=== PATIENT | male | born 1965 | race Caucasian/White ===

== ENCOUNTER 2016-10-01 18:13 | Emergency (ER) | payer OTHER ==
[~2016-10-01] VITALS: Ht 177.8 cm; Wt 164.9 kg
[~2016-10-01 18:13] MED LIST: LISI2.5T3 PO
[2016-10-01 18:36] VITALS: BP 109/67; PULSE 88; RESP 16; TEMP 98.4; O2SAT 96
--- NOTE | 2016-10-01 19:08 | PD ---
HPI Chief Complaint: Skin Problem Time Seen by Provider: 19:08 Travel History International Travel<30 days: No Contact w/Intl Traveler<30days: No Traveled to known affect area: No History of Present Illness HPI 51-year-old male with history of type 2 diabetes presents the emergency Department with sudden onset burning pain in the right medial heel. 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 Patient does not have fever, chills, or other symptoms. He states he did tear a hole in his right shoe several days ago which may have caused this particular exposure. Patient has not reported this as a Worker's Comp. injury at this time. He describes the pain as a burning sensitivity to the right medial heel and foot. It is only on the sole of the foot. He tried using some topical burn cream without improvement. He has no known drug allergies. PFSH Past Medical History Hx Anticoagulant Therapy: Yes (asa 81mg) Alzheimer's Disease: No Autoimmune Disease: No Blood Disorders: Yes Heart Rhythm Problems: No Cancer: No Cardiac Catheterization: No Cardiovascular Problems: Yes (htn on meds) High Cholesterol: No Chemotherapy: No Chest Pain: Yes (RESPIRATOY NOT CARDIAC) Congestive Heart Failure: No Diabetes: Yes (type 2) Patient Takes Glucophage: No Diminished Hearing: Yes Endocrine: No Gastrointestinal Disorders: Yes GERD: Yes Glaucoma: No Genitourinary: No Heparin Induced Thrombocytopen: No Hypertension: Yes Immune Disorder: No Implanted Vascular Access Dvce: No Musculoskeletal: Yes (RUPTURED LUMBAR DISC YEARS AGO) Neurologic: No Psychiatric: No Reproductive: No Respiratory: Yes Immunizations Current: No Radiation Therapy: No Thyroid Disease: No Tetanus Vaccination: < 5 Years Influenza Vaccination: Yes Past Surgical History Abdominal Surgery: Yes (hernia) Arteriovenous Shunt: No Coronary Artery Bypass Graft: No Eye Surgery: Yes (LEFT EYE CORRECTION CHILDHOOD) Genitourinary Surgery: Yes (prostate) Insulin Pump: No Joint Replacement: No Pacemaker: No Tonsillectomy: Yes Other Surgery: No Family History Family Myocardial Infarction: Yes Social History Alcohol Use: Yes (Occ.) Tobacco Use: No Substance Use: No Allergies-Medications (Allergen,Severity, Reaction): Coded Allergies: No Known Allergies (Verified , 10/01/16) Reported Meds & Prescriptions Reported Meds & Active Scripts Active Reported Victoza Inj (Liraglutide Inj) 18 Mg/3 Ml Pen 0.6 Mg SQ DAILY Cholesterol 1 Mis Mis 1 Tab PO HS Lisinopril 20 Mg Tab 20 Mg PO DAILY Review of Systems Except as stated in HPI: all other systems reviewed are Neg General / Constitutional: No: Fever Eyes: No: Visual changes HENT: No: Headaches Cardiovascular: No: Chest Pain or Discomfort Respiratory: No: Shortness of Breath Gastrointestinal: No: Abdominal Pain Genitourinary: No: Dysuria Musculoskeletal: No: Pain Skin: Positive Other, No Rash Neurologic: No: Weakness Psychiatric: No: Depression Endocrine: No: Polydipsia Hematologic/Lymphatic: No: Easy Bruising Physical Exam Narrative GENERAL: Patient appears in mild to moderate distress. SKIN: Warm and dry. Normal color. Normal turgor. The right foot has a 4 cm round area with the patient has complaints of sensitivity which appears to be a early forming blister or bulla along the medial heel. There is no obvious sign of drainage or cellulitis. Rash. HEAD: Atraumatic. Normocephalic. EYES: Pupils equal and round. No scleral icterus. No injection or drainage. ENT: No nasal bleeding or discharge. Mucous membranes pink and moist. Pharynx is clear NECK: Trachea midline. Supple nontende CARDIOVASCULAR: Regular rate and rhythm. RESPIRATORY: No accessory muscle use. Clear to auscultation. Breath sounds equal bilaterally. GASTROINTESTINAL: Abdomen soft, non-tender, nondistended. Hepatic and splenic margins not palpable. MUSCULOSKELETAL: Extremities without clubbing, cyanosis, or edema. No obvious deformities. NEUROLOGICAL: Awake and alert. No obvious cranial nerve deficits. Motor grossly within normal limits. Five out of 5 muscle strength in the arms and legs. Normal speech. PSYCHIATRIC: Appropriate mood and affect; insight and judgment normal. Data Data Last Documented VS Vital Signs Date Time Temp Pulse Resp B/P Pulse Ox O2 Delivery O2 Flow Rate FiO2 10/01/16 18:36 98.4 88 16 109/67 96 MDM Medical Decision Making Medical Screen Exam Complete: Yes Emergency Medical Condition: Yes Differential Diagnosis Chemical exposure burn. Right foot pain. Possible diabetic neuropathy. Early diabetic foot pain. Narrative Course Patient is medically stable at time of exam. Patient was discussed with and seen with Dr. Ngo. It is our opinion that the patient has a chemical burn to the right heel and foot. Patient is placed in a padded Neftaly bandage for. Patient has crutches at home which she will use for ambulation. He will be treated with ibuprofen 600 mg 4 times a day. #40. Patient is also given tramadol 50 mg one every 6 hours when necessary pain #20. Patient is to keep the area protected it elevated and stay off of it for the next several days. Work note is given keeping him out of work until cleared by his physician. Patient is to follow-up with his primary care physician as currently scheduled or return to emergency Department with worsening symptoms if needed. Diagnosis Primary Impression: Chemical burn Additional Impression: Acute pain of right foot Referrals: Primary Care Physician Patient Instructions: General Instructions Departure Forms: Work Release Special Instructions: Patient unable to bear weight or work until cleared by his physician. Additional Instructions: Patient was discussed with and seen with Dr. Ngo. It is our opinion that the patient has a chemical burn to the right heel and foot. Patient is placed in a padded Neftaly bandage for. Patient has crutches at home which she will use for ambulation. He will be treated with ibuprofen 600 mg 4 times a day. #40. Patient is also given tramadol 50 mg one every 6 hours when necessary pain #20. Patient is to keep the area protected it elevated and stay off of it for the next several days. Work note is given keeping him out of work until cleared by his physician. Patient is to follow-up with his primary care physician as currently scheduled or return to emergency Department with worsening symptoms if needed. Med/Other Pt SpecificInfo: Prescription(s) given Scripts Tramadol 50 Mg Tab50 Mg PO Q6H PRN (PAIN) #20 TAB Prov:Scooter Ngo MD 10/01/16 Ibuprofen 600 Mg Nhs108 Mg PO Q6H PRN (Pain/Inflammation) #40 TAB Prov:Scooter Ngo MD 10/01/16 Disposition: 01 DISCHARGE HOME Condition: Stable Jonah Schwarz October 01, 2016 19:08
[2016-10-01] MEDS ORDERED: SPIRCAP INH (19:09)
[2016-10-01] MEDS ORDERED: AMLO5TAB2 PO (19:09)
[2016-10-01] MEDS ORDERED: SYMB80AE INH (19:09)
[2016-10-01] MEDS ORDERED: VICT18IN SQ (19:22)
[2016-10-01] MEDS ORDERED: CHOLMIS PO (19:22)
[2016-10-01] MEDS ORDERED: LISI-515 PO (19:22)
[2016-10-01] MEDS ORDERED: IBUP-232 PO (19:43)
[2016-10-01] MEDS ORDERED: TRAM50TA PO (19:43)
== END 2016-10-01 19:57 | disposition home or self-care (01) ==
LOC: PHEFT 18:13
DX: T65.91XA Toxic effect of unspecified substance, accidental (unintentional), initial encounter (principal); T25.421A Corrosion of unspecified degree of right foot, initial encounter; M79.671 Pain in right foot; I10 Essential (primary) hypertension; E11.9 Type 2 diabetes mellitus without complications; Y93.89 Activity, other specified; Y92.69 Other specified industrial and construction area as the place of occurrence of the external cause; Y99.0 Civilian activity done for income or pay; Z79.899 Other long term (current) drug therapy
CPT/HCPCS: 99283

== ENCOUNTER 2016-10-13 21:04 | Inpatient (IN) | payer OTHER ==
[~2016-10-13] VITALS: Ht 177.8 cm; Wt 167.4 kg
[~2016-10-13 21:04] MED LIST changes: +CHOLMIS PO; +IBUP-232 PO; +LISI-515 PO; -LISI2.5T3 PO; +TRAM50TA PO; +VICT18IN SQ
[2016-10-13 21:16] VITALS: BP 156/88; PULSE 80; RESP 18; TEMP 99; O2SAT 96
--- NOTE | 2016-10-13 21:45 | PD ---
HPI Chief Complaint: Musculoskeletal Complaint Time Seen by Provider: 21:44 Travel History International Travel<30 days: No Contact w/Intl Traveler<30days: No Traveled to known affect area: No History of Present Illness HPI 51 year old right hand dominant male with PMH of T2DM, HTN presents to the ED for evaluation of ~20 hour history of pain and swelling of the left hand. Patient states that he woke up with morning to his symptoms. 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 He denies fever, chills, numbness, tingling, weakness of the extremity. He was able to go about his normal activities today. Patient states that he routinely blows dust off of himself during the day using high powered air. States that the pain is worsening, now radiated up the arm. PFSH Past Medical History Hx Anticoagulant Therapy: Yes (asa 81mg) Alzheimer's Disease: No Autoimmune Disease: No Blood Disorders: Yes Heart Rhythm Problems: No Cancer: No Cardiac Catheterization: No Cardiovascular Problems: Yes (htn on meds) High Cholesterol: Yes Chemotherapy: No Chest Pain: Yes (RESPIRATOY NOT CARDIAC) Congestive Heart Failure: No Diabetes: Yes (DM type 2) Patient Takes Glucophage: No Diminished Hearing: No Endocrine: No Gastrointestinal Disorders: Yes GERD: Yes Glaucoma: No Genitourinary: No Hypertension: Yes Immune Disorder: No Implanted Vascular Access Dvce: No Musculoskeletal: Yes (RUPTURED LUMBAR DISC YEARS AGO) Neurologic: Yes (NEUROPATHY) Psychiatric: No Reproductive: No Respiratory: Yes Immunizations Current: Yes Radiation Therapy: No Thyroid Disease: No Tetanus Vaccination: < 5 Years ?: Not Past Surgical History Arteriovenous Shunt: No Coronary Artery Bypass Graft: No Eye Surgery: Yes (LEFT EYE CORRECTION CHILDHOOD) Insulin Pump: No Joint Replacement: No Pacemaker: No Other Surgery: No Family History Family Myocardial Infarction: Yes Social History Alcohol Use: Yes (Occ.) Tobacco Use: No Substance Use: No Allergies-Medications (Allergen,Severity, Reaction): Coded Allergies: No Known Allergies (Verified , 10/13/16) Reported Meds & Prescriptions Reported Meds & Active Scripts Active Tramadol (Tramadol HCl) 50 Mg Tab 50 Mg PO Q6H PRN Ibuprofen 600 Mg Tab 600 Mg PO Q6H PRN Reported Victoza Inj (Liraglutide Inj) 18 Mg/3 Ml Pen 0.6 Mg SQ DAILY Lisinopril 20 Mg Tab 20 Mg PO DAILY Review of Systems Except as stated in HPI: all other systems reviewed are Neg Physical Exam Narrative GENERAL: Well-nourished, well-developed obese male in NAD. SKIN: Focused skin assessment warm/dry. There is a subcentimeter superficial abrasion of the dorsal aspect of the left hand. No warmth. No erythema. No drainage. No cellulitic streaking. HEAD: Normocephalic. EYES: No scleral icterus. No injection or drainage. NECK: Supple, trachea midline. No JVD or lymphadenopathy. CARDIOVASCULAR: Regular rate and rhythm without murmurs, gallops, or rubs. RESPIRATORY: Breath sounds equal bilaterally. No accessory muscle use. GASTROINTESTINAL: Abdomen soft, non-tender, nondistended. MUSCULOSKELETAL: No cyanosis, or edema. FOCUDSED LEFT UPPER EXTREMITY EXAM: 2+ radial pulse. Mild TTP of the dorsal aspect of the hand. No crepitus. Patient retains full, active, painless range of motion of the digits and wrist. Strong finger to thumb opposition. Compartments are soft. Neurovascularly intact. BACK: Nontender without obvious deformity. No CVA tenderness. Data Data Last Documented VS Vital Signs Date Time Temp Pulse Resp B/P Pulse Ox O2 Delivery O2 Flow Rate FiO2 10/14/16 00:35 96 10/14/16 00:07 77 16 144/88 Room Air 10/13/16 21:16 99.0 Orders Hand, Complete ([id number]) (10/13/16 21:50) Basic Metabolic Panel (Bmp) (10/13/16 22:59) Complete Blood Count With Diff (10/13/16 22:59) Blood Culture (10/13/16 22:59) Iv Access Insert/Monitor (10/13/16 22:59) Tetanus/Diphtheria Tox Adult (Tetanus/Di (10/13/16 23:00) Lactic Acid (10/13/16 23:12) Piperacil-Tazo 4.5 Gm Premix (Zosyn 4.5 (10/13/16 23:15) Clindamycin Inj (Cleocin Inj) (10/13/16 23:15) Vancomycin Inj (Vancomycin Inj) (10/13/16 23:15) Admit Order (Ed Use Only) (10/14/16 ) ^ Saline Lock (10/14/16 00:30) Resp Oxygen Macario C Titrat 1-4 L (10/14/16 ) Notify Dr: Other (10/14/16 00:30) Sodium Chloride 0.9% Flush (Ns Flush) (10/14/16 09:00) Sodium Chloride 0.9% Flush (Ns Flush) (10/14/16 00:30) Consult Hand Surgery (10/14/16 ) ^ For Further Orders (10/14/16 00:30) Labs Laboratory Tests Test 10/13/16 23:30 White Blood Count 12.4 TH/MM3 Red Blood Count 4.67 MIL/MM3 Hemoglobin 13.4 GM/DL Hematocrit 40.0 % Mean Corpuscular Volume 85.8 FL Mean Corpuscular Hemoglobin 28.6 PG Mean Corpuscular Hemoglobin 33.4 % Concent Red Cell Distribution Width 13.1 % Platelet Count 269 TH/MM3 Mean Platelet Volume 8.2 FL Neutrophils (%) (Auto) 66.2 % Lymphocytes (%) (Auto) 22.0 % Monocytes (%) (Auto) 6.4 % Eosinophils (%) (Auto) 4.8 % Basophils (%) (Auto) 0.6 % Neutrophils # (Auto) 8.2 TH/MM3 Lymphocytes # (Auto) 2.7 TH/MM3 Monocytes # (Auto) 0.8 TH/MM3 Eosinophils # (Auto) 0.6 TH/MM3 Basophils # (Auto) 0.1 TH/MM3 CBC Comment DIFF FINAL Differential Comment Sodium Level 139 MEQ/L Potassium Level 4.0 MEQ/L Chloride Level 103 MEQ/L Carbon Dioxide Level 30.1 MEQ/L Anion Gap 6 MEQ/L Blood Urea Nitrogen 13 MG/DL Creatinine 0.86 MG/DL Estimat Glomerular Filtration 94 ML/MIN Rate Random Glucose 94 MG/DL Lactic Acid Level 1.0 mmol/L Calcium Level 8.7 MG/DL MDM Medical Decision Making Medical Screen Exam Complete: Yes Emergency Medical Condition: Yes Differential Diagnosis Edema versus chemical burn versus abrasion versus early cellulitis versus other Narrative Course 51 year old right hand dominant male with PMH of T2DM, HTN presents to the ED for evaluation of ~20 hour history of pain and swelling of the left hand. Patient states that he woke up with morning to his symptoms. 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 He denies fever, chills, numbness, tingling, weakness of the extremity. He was able to go about his normal activities today. Vitals reviewed. Physical exam reveals an obese male in NAD. There is a subcentimeter superficial abrasion of the dorsal aspect of the left hand. No warmth. No erythema. No drainage. No cellulitic streaking. 2+ radial pulse. Patient retains full, active, painless range of motion of the digits and wrist. Strong finger to thumb opposition. Compartments are soft. Neurovascularly intact. Xray reveals no acute injury but does note subcutaneous air, possibly gas. I discussed the patient with Dr. Owen who recommends hand consultation. Call placed to Dr. Glaser. Dr. Owen to assume care of this patient. Please see her note for disposition. Diagnosis Primary Impression: Swelling of left hand Referrals: Primary Care Physician Elen Robbins October 13, 2016 21:45
[2016-10-13] MEDS ORDERED: CLIN1CAP5 PO (22:19)
--- NOTE | 2016-10-13 22:35 | RADHPO ---
EXAM DATE/TIME: 10/13/2016 22:20 [facility] COMPARISON: No previous studies available for comparison. INDICATIONS : Patient isn't sure what injury is from. Pain on posterior aspect of hand. MEDICAL HISTORY : Diabetes mellitus type II. Hypertension SURGICAL HISTORY : None. ENCOUNTER: Initial ACUITY: 2 days PAIN SCORE: 8/10 LOCATION: Left Posterior surface of hand. FINDINGS: There is dorsal soft tissue swelling. Some scattered mottled lucency seen and small bubbles of gas ar e possible. Extensor tendon sheaths could be involved. Mildly comminuted nonacute appearing distal tuft fracture seen of the little finger. I don't see an a cute fracture. No cortical destruction demonstrated. CONCLUSION: Soft tissue swelling dorsally of the hand and probably with some associated gas. No acute bony abnorm ality demonstrated. Nonacute distal tuft fracture of the little finger. Jaspreet Deras MD on October 13, 2016 at 22:31 Board Certified Radiologist. This report was verified electronically.
[2016-10-13] MEDS ORDERED: TETANUS/DIPHTHERIA TOXOID ADULT 0.5 ML VIAL IM ONE (23:00)
[2016-10-13] MEDS ORDERED: VANCOMYCIN INJ 1,500 MG in SODIUM CHLORID 0.9% 500 ML INJ 500 ML IV ONE (23:15)
[2016-10-13] MEDS ORDERED: CLINDAMYCIN INJ 900 MG in SODIUM CHLORIDE 0.9% INJ 100 ML IV ONE (23:15)
[2016-10-13] MEDS ORDERED: PIPERACIL-TAZO 4.5 GM PREMIX 100 ML IV ONE (23:15)
--- NOTE | 2016-10-13 23:40 | PD ---
Physical Exam Date Seen by Provider: October 13, 2016 Time Seen by Provider: 23:18 Narrative GENERAL: Well-developed obese male in no acute distress no respiratory distress SKIN: Warm and dry. HEAD: Normocephalic. EYES: No scleral icterus. No injection or drainage. NECK: Supple, trachea midline. No JVD or lymphadenopathy. CARDIOVASCULAR: Regular rate and rhythm without murmurs, gallops, or rubs. RESPIRATORY: Breath sounds equal bilaterally. No accessory muscle use. GASTROINTESTINAL: Abdomen soft, non-tender, nondistended. MUSCULOSKELETAL: No cyanosis, or edema. Attention left upper extremity mild soft tissue swelling to the dorsum of the left hand with superficial abrasion without black eschar, erythema, point tenderness, fluctuance, or drainage and superficial abrasion laceration at the radial aspect of the left index finger DIP no redness no drainage no fluctuance no eschar; no ascending erythema from the index finger third MCP no increased warmth. Mild palpable crepitus overlying the dorsum of the left hand midline at the level of the third MCP does not extend proximally to the wrist or forearm although patient complains of tenderness to palpation of the dorsum of the left hand and mild tenderness to palpation of the dorsum of the distal forearm; no palpable risk for distal forearm crepitus or fluctuance, no ascending erythema no axillary lymphadenopathy. Patient is able to demonstrate intact flexion extension of the digits of the left hand. Capillary refill is brisk and less than 2 seconds per digit. Radial and ulnar pulses 2+ to palpation. Data Data Last Documented VS Vital Signs Date Time Temp Pulse Resp B/P Pulse Ox O2 Delivery O2 Flow Rate FiO2 10/13/16 21:16 99.0 80 18 156/88 96 Orders Hand, Complete ([id number]) (10/13/16 21:50) Basic Metabolic Panel (Bmp) (10/13/16 22:59) Complete Blood Count With Diff (10/13/16 22:59) Blood Culture (10/13/16 22:59) Iv Access Insert/Monitor (10/13/16 22:59) Tetanus/Diphtheria Tox Adult (Tetanus/Di (10/13/16 23:00) Lactic Acid (10/13/16 23:12) Piperacil-Tazo 4.5 Gm Premix (Zosyn 4.5 (10/13/16 23:15) Clindamycin Inj (Cleocin Inj) (10/13/16 23:15) Vancomycin Inj (Vancomycin Inj) (10/13/16 23:15) Admit Order (Ed Use Only) (10/14/16 ) ^ Saline Lock (10/14/16 00:30) Resp Oxygen Macario C Titrat 1-4 L (10/14/16 ) Notify Dr: Other (10/14/16 00:30) Sodium Chloride 0.9% Flush (Ns Flush) (10/14/16 09:00) Sodium Chloride 0.9% Flush (Ns Flush) (10/14/16 00:30) Consult Hand Surgery (10/14/16 ) ^ For Further Orders (10/14/16 00:30) Labs Laboratory Tests Test 10/13/16 23:30 White Blood Count 12.4 TH/MM3 Red Blood Count 4.67 MIL/MM3 Hemoglobin 13.4 GM/DL Hematocrit 40.0 % Mean Corpuscular Volume 85.8 FL Mean Corpuscular Hemoglobin 28.6 PG Mean Corpuscular Hemoglobin 33.4 % Concent Red Cell Distribution Width 13.1 % Platelet Count 269 TH/MM3 Mean Platelet Volume 8.2 FL Neutrophils (%) (Auto) 66.2 % Lymphocytes (%) (Auto) 22.0 % Monocytes (%) (Auto) 6.4 % Eosinophils (%) (Auto) 4.8 % Basophils (%) (Auto) 0.6 % Neutrophils # (Auto) 8.2 TH/MM3 Lymphocytes # (Auto) 2.7 TH/MM3 Monocytes # (Auto) 0.8 TH/MM3 Eosinophils # (Auto) 0.6 TH/MM3 Basophils # (Auto) 0.1 TH/MM3 CBC Comment DIFF FINAL Differential Comment Sodium Level 139 MEQ/L Potassium Level 4.0 MEQ/L Chloride Level 103 MEQ/L Carbon Dioxide Level 30.1 MEQ/L Anion Gap 6 MEQ/L Blood Urea Nitrogen 13 MG/DL Creatinine 0.86 MG/DL Estimat Glomerular Filtration 94 ML/MIN Rate Random Glucose 94 MG/DL Lactic Acid Level 1.0 mmol/L Calcium Level 8.7 MG/DL [facility] Medical Record Reviewed: Yes Supervised Visit with DHRUV: Yes Interpretation(s) CBC & BMP Diagram 10/13/16 23:30 Vital Signs Date Time Temp Pulse Resp B/P Pulse Ox O2 Delivery O2 Flow Rate FiO2 10/13/16 21:16 99.0 80 18 156/88 96 lactic acid: 1, not elevated Differential Diagnosis Cellulitis, puncture wound, high pressure tool induced soft tissue injury; no signs of this time necrotizing fasciitis, uncontrolled diabetes Narrative Course Patient accepted and care from [facility]; IV access obtained specimens collected and sent for resulting patient administered IV antibiotic Zosyn, clindamycin and vancomycin IV piggyback; case discussed with on-call hand surgeon Dr. Glaser; patient will be admitted to on-call medicine. 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 Symptoms noted since this morning. No change in swelling since this morning reportedly. Patient is right-handed. Patient's had no fever no chills no nausea no vomiting no ascending erythema no axillary lymphadenopathy and no redness or increased warmth to the dorsum of the left hand. Patient has noted some swelling of the hand. Patient states that he frequently uses his high velocity pressured tools to blow off the surface of his skin at the end of work but has had no puncture wound or known injury specifically with the high pressured tools affecting the left hand or upper extremity. Patient is right-handed. Does not know his tetanus status. Exam is consistent with superficial abrasion over the third MCP and small neck laceration at the radial aspect of the left index finger DIP with flexion instruction intact soft tissue swelling is noted no increased warmth or redness no fluctuance no drainage at the sites the patient does have small amount of palpable crepitus over the dorsum of the hand that does not extend over the wrist or into the distal upper extremity. Concern for cellulitis gas- containing organisms and extremely early next rising fasciitis patient covered with antibiotics Zosyn and vancomycin and clindamycin in case discussed with on- call hand surgeon. At this point time is not full patient warrants emergent intervention based on his exam but does warrant close observation in hospital with acute 2 hour exams to see if any change in exam. Patient otherwise able to stay at [facility] at this time and will be seen in consultation by hand surgeon at [facility] unless exam changes. Call placed to medicine service for admission. @ 12:36 no change in exam --mild palpable crepitus isolated dorsum of left hand no redness no increased warmth no ascending erythema or warmth or crepitus or point tenderness other than mild tenderness over the dorsum of the distal left forearm. Physician Communication Physician Communication discussed with operations label clerk hand surgeon Dr Glaser recommends q 2 hour hand reassessment by admitting medicine service as well as hand consult; call placed to service for PCP Dr Berkowitz--discussed with Chivo Esqueda PA-C Diagnosis Primary Impression: Soft tissue injury of left hand Additional Impressions: Abrasion of left hand, initial encounter Subcutaneous air Qualified Code: T79.7XXA - Subcutaneous air, initial encounter Type 2 diabetes mellitus Admitting Information Admitting Physician Requests: Admit Referrals: Primary Care Physician Additional Instruction: Rest, hydrate. Return to normal, gentle activities as tolerated. Take all antibiotics as prescribed, and the symptoms resolved. Return to the ED in 2 days if symptoms have not improved with treatment. Otherwise, follow-up with the primary care provider. Return to the ED for any urgent or emergent medical condition. Funmi Owen MD October 13, 2016 23:40
[2016-10-13 23:50] LABS: AUTOMATED NEUTROPHIL # 8.2 TH/MM3 (1.8-7.7); BASOPHIL # 0.1 TH/MM3 (0-0.2); BASOPHIL % 0.6 % (0.0-2.0); EOSINOPHIL # 0.6 TH/MM3 (0-0.4); EOSINOPHIL % 4.8 % (0.0-4.0); LYMPHOCYTE # 2.7 TH/MM3 (1.0-4.8); MEAN CELL VOLUME 85.8 FL (80.0-100.0); MEAN CORPUSCULAR HEMOGLOBIN 28.6 PG (27.0-34.0); MEAN CORPUSCULAR HGB CONC 33.4 % (32.0-36.0); MONO % 6.4 % (0.0-8.0); NEUT % 66.2 % (16.0-70.0); PLATELET COUNT 269 TH/MM3 (150-450); RED BLOOD COUNT 4.67 MIL/MM3 (4.50-5.90); RED CELL DISTRIBUTION WIDTH 13.1 % (11.6-17.2); WHITE BLOOD COUNT 12.4 TH/MM3 (4.0-11.0)
[2016-10-13 23:52] LABS: HEMO FLAGS DIFF FINAL
[2016-10-14] VITALS (12 sets, daily range): BP systolic 108–146; BP diastolic 55–88; PULSE 56–78; RESP 12–17; TEMP 97.3–97.9; O2SAT 93–99
[2016-10-14 00:04] LABS: BICARBONATE 30.1 MEQ/L (21.0-32.0)
[2016-10-14] MEDS ORDERED: SODIUM CHLORIDE 0.9% FLUSH 10 ML FLUSH IVF PRN (00:30)
[2016-10-14] MEDS ORDERED: Vancomycin Consult Pharmacy 1 EA OTHER SCH (02:00)
[2016-10-14] MEDS ORDERED: SODIUM CHLORIDE 0.9% FLUSH 10 ML FLUSH IV FLUSH PRN (02:00)
[2016-10-14] MEDS ORDERED: ACETAMINOPHEN 325 MG TAB PO PRN (02:00)
[2016-10-14] MEDS ORDERED: ONDANSETRON HCL 4 MG/2 ML VIAL IVP PRN (02:00)
[2016-10-14] MEDS ORDERED: NALOXONE HCL 0.4 MG/ML AMP IV PRN (02:00)
[2016-10-14] MEDS ORDERED: ACETAMINOPHEN/HYDROcodone 325 MG/5 MG TAB PO PRN (02:00)
[2016-10-14] MEDS ORDERED: SENNOSIDES 8.6 MG TAB PO PRN (02:00)
[2016-10-14] MEDS: HEPARIN SODIUM - SQ 10,000 UNITS/ML VIAL SQ SCH ×2 (03:16→14:36)
[2016-10-14] MEDS: ACETAMINOPHEN/HYDROcodone 325 MG/5 MG TAB PO PRN ×2 (03:16→09:10)
[2016-10-14] MEDS: PIPERACIL-TAZO 4.5 GM PREMIX 100 ML IV SCH ×4 (05:00→23:27)
[2016-10-14] MEDS ORDERED: traMADol HCL 50 MG TAB PO PRN (08:45)
[2016-10-14] MEDS ORDERED: SODIUM CHLORIDE 0.9% FLUSH 10 ML FLUSH IV FLUSH SCH (09:00)
[2016-10-14] MEDS: CLINDAMYCIN INJ 600 MG in SODIUM CHLORIDE 0.9% INJ 100 ML IV SCH ×3 (09:05→23:27)
[2016-10-14] MEDS: VANCOMYCIN INJ 1,900 MG in SODIUM CHLORID 0.9% 500 ML INJ 500 ML IV SCH ×2 (09:07→17:13)
[2016-10-14] MEDS: SODIUM CHLORIDE 0.9% FLUSH 10 ML FLUSH IV FLUSH SCH ×2 (09:08→20:28)
[2016-10-14] MEDS: LISINOPRIL 20 MG TAB PO SCH (09:09)
[2016-10-14] MEDS: IBUPROFEN 600 MG TAB PO PRN (09:10)
[2016-10-14] MEDS ORDERED: LIRAGLUTIDE 0.6 MG SQ SCH (09:30)
--- NOTE | 2016-10-14 10:33 | MH ---
cc: NICO ASKEW MD DATE OF ADMISSION: 10/14/2016 CHIEF COMPLAINT Swelling of the left hand. HISTORY OF PRESENT ILLNESS This is a 51-year-old male with past medical/surgical history significant for diabetes mellitus type 2, hypertension, obesity, hyperlipidemia, ruptured lumbar disc, low back pain, neuropathy, left eye correction surgery in childhood, who came to the ER at [facility] complaining of swelling of the left hand. The patient had a puncture wound on the left hand and woke up in the morning and had symptoms of swelling of the hand, redness and pain. 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 He denies any fever or chills, numbness, tingling or weakness of the extremity involved. Denies any other symptoms. Other than that nothing significant. PAST MEDICAL/SURGICAL HISTORY As dictated above. SOCIAL HISTORY Denies smoking. Drinks occasionally. Denies drug abuse. Lives at home. 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 FAMILY HISTORY Significant for hypertension and diabetes mellitus. ALLERGIES No known drug allergies. MEDICATIONS 1. Tramadol 50 mg q.6h. 2. Ibuprofen 600 mg p.o. q.6h. 3. Victoza injection 0.6 mg subcutaneous daily. 4. Lisinopril 20 mg p.o. daily. REVIEW OF SYSTEMS Positive for left hand swelling, pain and mild redness. All other review of systems are negative except obesity. PHYSICAL EXAMINATION GENERAL: This is a 51-year-old male lying on the bed, not in acute distress. VITAL SIGNS: Temperature 97.8, heart rate 63, respirations 12, blood pressure 123/56, O2 saturation 98% on room air. HEENT: Normocephalic, atraumatic. EOMI. PERRL. Oral mucosa moist. NECK: Supple. No visible thyromegaly or neck mass. Trachea central. CV: Regular rate and rhythm. LUNGS: Respirations clear to auscultation bilaterally. ABDOMEN: Soft and nontender. Bowel sounds audible. EXTREMITIES: There is left hand redness, swelling and tenderness but full range of motion. Neurovascularly intact. SKIN: Warm and dry. Erythema of the left hand and puncture wound on the left hand. PSYCHIATRIC: The patient is cooperative. NEUROLOGIC: Awake, alert, oriented x4. No focal deficit. LABORATORY CBC showed WBC count 12.4 high, eosinophil 4.8 high, neutrophil 8.2% high. Otherwise CBC is normal. BMP is totally unremarkable. Lactic acid level 1.0, calcium 8.7. Blood cultures x2 done and negative so far. IMAGING Hand x-ray done shows soft tissue swelling dorsally on the hand and probably with some associated gas. No acute bony abnormality demonstrated. No acute distal tuft fracture of the little finger. ASSESSMENT AND PLAN 1. This is a 51-year-old male who came to the ER diagnosed with swelling, pain and redness/cellulitis of the left hand, most likely after a puncture wound. The patient is on vancomycin. The patient's pain and swelling is improving. The patient is also on clindamycin and Zosyn IV. Hand surgery is consulted. Further recommendation per patient's progress. 2. Hypertension. Continue home medication. 3. Arthritis. Continue home medication. 4. Morbid obesity. 5. DVT prophylaxis with heparin 5000 units subcutaneous twice a day. 6. GI prophylaxis with Protonix 40 mg p.o. daily. 7. Check CBC and CMP in the morning. 8. We are going to manage the patient on a daily basis and make recommendation daily. Nico Askew MD EA/RYLEE /9:57 AM /10:16 AM
[2016-10-14] MEDS: PANTOPRAZOLE SOD 40 MG DELAYED RELEASE TAB PO SCH (11:34)
--- NOTE | 2016-10-14 14:35 | MB ---
cc: NOMI LUO III, M.D. DATE OF CONSULTATION 10/14/2016 REASON FOR CONSULTATION The patient is a 51 year-old [id number] male with a past medical history of type 2 diabetes and hypertension who presented to the emergency room late last night for evaluation of a one-day history of pain and swelling in his left hand. 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 On admission, he had a very unimpressive examination, but was noted to have some subcutaneous gas on the dorsal aspect of the hand on x-ray and I agreed with close observation, as well as IV antibiotics. This morning, 12 hours after admission, he has not worsened at all and states that his hand has gotten better since this all first started. He denies any numbness or tingling. PAST MEDICAL HISTORY 1. High blood pressure 2. Type 2 diabetes PAST SURGICAL HISTORY Denied FAMILY HISTORY Noncontributory to this situation or hospital stay. SOCIAL HISTORY He does not smoke. ALLERGIES NO KNOWN DRUG ALLERGIES. MEDICATIONS AT HOME 1. Lisinopril 20 mg daily. 2. He states he has tried various anti-hypoglycemics, but they were incredibly expensive so he is not taking any prescription medications for the diabetes at this time. REVIEW OF SYSTEMS Patient is not complaining of any headaches or double or blurry vision. He does not complain of any coughing, wheezing or shortness of breath. He is not complaining of any chest pain or palpitation. He is not complaining of any nausea, vomiting or abdominal pain. He does not complain of any burning, frequency or urgency with urination. He is not complaining of any night sweats, fevers or chills. He is not complaining of any anxiety, depression or suicidal ideations. He is not complaining of any spine, neck or back pain. X-rays were performed and are reviewed and are in the [facility]. LABORATORY DATA Studies performed reveal a white blood cell count of 12.4 thousand, BUN and creatinine are 13 and 0.86. PHYSICAL EXAMINATION He is a well-developed obese male sleeping comfortably. VITAL SIGNS: Temperature is 97.8, heart rate is 70 respiratory is 12, blood pressure 123/56, pulse ox is 96% on room air. EXTREMITIES: Examination of the left upper extremity is a very nonrevealing examination. The left hand has no erythema or tenderness. There is no subcutaneous emphysema or crepitance that I can palpate. He has full active range of motion. All musculotendinous units are intact. There is no evidence of any streaking. There is no tenderness anywhere in the wrist or forearm. There is no evidence of compartment syndrome and all surfaces are soft. There is no erythema or induration anywhere. Sensation is fully intact. Capillary refill is less than two seconds in all fingertips. There is no epitrochlear or axillary adenopathy. He does have small noninfected appearing abrasions on the dorsal aspect of his left hand and there is only very mild edema. IMPRESSION Localized infection left hand, resolving. I do not think this is necrotizing fasciitis at all, but I do agree with intravenous antibiotics for a short course and then he can be discharged home on oral antibiotics. Continue to keep his hand elevated. I discussed this with the patient and the nurse and they understand and agree and wish to proceed. No restrictions as far as activity goes. MD SAMIRA López III/PATY /1:50 PM /2:14 PM
[2016-10-14] MEDS: metFORMIN HCL 500 MG TAB PO SCH (18:00)
[2016-10-15] VITALS (9 sets, daily range): BP systolic 94–138; BP diastolic 43–84; PULSE 52–74; RESP 15–22; TEMP 96.9–98.1; O2SAT 93–98
[2016-10-15] MEDS: VANCOMYCIN INJ 1,900 MG in SODIUM CHLORID 0.9% 500 ML INJ 500 ML IV SCH ×3 (01:46→17:08)
[2016-10-15] MEDS: HEPARIN SODIUM - SQ 10,000 UNITS/ML VIAL SQ SCH ×2 (01:50→14:00)
[2016-10-15] MEDS: PIPERACIL-TAZO 4.5 GM PREMIX 100 ML IV SCH ×4 (04:15→23:13)
[2016-10-15 05:52] LABS: AUTOMATED NEUTROPHIL # 6.2 TH/MM3 (1.8-7.7); BASOPHIL # 0.1 TH/MM3 (0-0.2); BASOPHIL % 1.5 % (0.0-2.0); EOSINOPHIL # 0.4 TH/MM3 (0-0.4); EOSINOPHIL % 4.2 % (0.0-4.0); HEMATOCRIT 37.5 % (39.0-51.0); HEMO FLAGS DIFF FINAL; LYMPH % 18.7 % (9.0-44.0); LYMPHOCYTE # 1.7 TH/MM3 (1.0-4.8); MEAN CELL VOLUME 86.4 FL (80.0-100.0); MEAN CORPUSCULAR HGB CONC 33.5 % (32.0-36.0); MONO % 6.5 % (0.0-8.0); NEUT % 69.1 % (16.0-70.0); PLATELET COUNT 205 TH/MM3 (150-450); RED BLOOD COUNT 4.34 MIL/MM3 (4.50-5.90); RED CELL DISTRIBUTION WIDTH 12.8 % (11.6-17.2)
[2016-10-15 06:04] LABS: GLOMERULAR FILTRATION RATE 114 ML/MIN (>89)
[2016-10-15 07:29] LABS: CHLORIDE 107 MEQ/L (98-107); POTASSIUM 4.3 MEQ/L (3.5-5.1); SODIUM (NA) 141 MEQ/L (136-145)
[2016-10-15 07:32] LABS: BLOOD UREA NITROGEN 13 MG/DL (7-18)
[2016-10-15 07:36] LABS: AST (GOT) 11 U/L (15-37)
[2016-10-15 07:37] LABS: TOTAL BILIRUBIN ADULT 0.3 MG/DL (0.2-1.0)
[2016-10-15 07:49] LABS: ANION GAP 7 MEQ/L (5-15); BICARBONATE 26.6 MEQ/L (21.0-32.0)
[2016-10-15 07:53] LABS: ALT (GPT) 20 U/L (12-78)
[2016-10-15 07:56] LABS: ALKALINE PHOSPHATASE 76 U/L (45-117)
[2016-10-15] MEDS: CLINDAMYCIN INJ 600 MG in SODIUM CHLORIDE 0.9% INJ 100 ML IV SCH ×2 (08:40→17:10)
[2016-10-15] MEDS: SODIUM CHLORIDE 0.9% FLUSH 10 ML FLUSH IV FLUSH SCH ×2 (08:47→23:12)
[2016-10-15] MEDS: metFORMIN HCL 500 MG TAB PO SCH ×2 (08:47→17:11)
[2016-10-15] MEDS: PANTOPRAZOLE SOD 40 MG DELAYED RELEASE TAB PO SCH (09:20)
[2016-10-15] MEDS: LISINOPRIL 20 MG TAB PO SCH (09:21)
[2016-10-15] MEDS: ACETAMINOPHEN/HYDROcodone 325 MG/5 MG TAB PO PRN ×4 (09:23→23:14)
--- NOTE | 2016-10-15 09:25 | HHI.PR ---
Subjective History of Present Illness Patient feel better left hand swelling pain and redness better hand surgeon input noted. Review of Systems Constitutional Constitutional: Fatigue, Weakness Musculoskeletal MS Remarks Left hand swelling mild pain and redness improving. Integumentary Skin Remarks Left hand swelling mild pain and redness improving. Vitals/Results Intake & Output 10/14/16 10/14/16 10/15/16 15:00 23:00 07:00 Intake Total 1506 ml 240 ml 800 ml Balance 1506 ml 240 ml 800 ml Intake Oral 750 ml 240 ml IV Total 756 ml 800 ml # Voids 2 2 Vital Signs Vital Signs Date Time Temp Pulse Resp B/P Pulse Ox O2 Delivery O2 Flow Rate FiO2 10/15/16 08:51 94 21 10/15/16 04:00 60 10/15/16 04:00 97.7 60 22 103/57 93 10/15/16 00:00 98.1 52 15 94/43 94 10/15/16 00:00 52 10/14/16 20:00 97.8 65 17 108/55 94 10/14/16 20:00 64 10/14/16 19:05 95 10/14/16 16:33 62 10/14/16 16:30 97.9 68 16 135/55 99 10/14/16 12:00 97.3 56 16 125/58 96 10/14/16 12:00 58 10/14/16 10:00 70 CBC/BMP: 10/15/16 0539 10/15/16 0539 Lab Results Laboratory Tests Test 10/15/16 05:39 White Blood Count 9.0 TH/MM3 Red Blood Count 4.34 MIL/MM3 Hemoglobin 12.6 GM/DL Hematocrit 37.5 % Mean Corpuscular Volume 86.4 FL Mean Corpuscular Hemoglobin 29.0 PG Mean Corpuscular Hemoglobin 33.5 % Concent Red Cell Distribution Width 12.8 % Platelet Count 205 TH/MM3 Mean Platelet Volume 7.6 FL Neutrophils (%) (Auto) 69.1 % Lymphocytes (%) (Auto) 18.7 % Monocytes (%) (Auto) 6.5 % Eosinophils (%) (Auto) 4.2 % Basophils (%) (Auto) 1.5 % Neutrophils # (Auto) 6.2 TH/MM3 Lymphocytes # (Auto) 1.7 TH/MM3 Monocytes # (Auto) 0.6 TH/MM3 Eosinophils # (Auto) 0.4 TH/MM3 Basophils # (Auto) 0.1 TH/MM3 CBC Comment DIFF FINAL Differential Comment Sodium Level 141 MEQ/L Potassium Level 4.3 MEQ/L Chloride Level 107 MEQ/L Carbon Dioxide Level 26.6 MEQ/L Anion Gap 7 MEQ/L Blood Urea Nitrogen 13 MG/DL Creatinine 0.73 MG/DL Estimat Glomerular Filtration 114 ML/MIN Rate Random Glucose 105 MG/DL Calcium Level 8.0 MG/DL Total Bilirubin 0.3 MG/DL Aspartate Amino Transf 11 U/L (AST/SGOT) Alanine Aminotransferase 20 U/L (ALT/SGPT) Alkaline Phosphatase 76 U/L Total Protein 6.5 GM/DL Albumin 2.8 GM/DL Physical Exam General General Appearance: Well Developed, Well Nourished, No Acute Distress, Comfortable Eyes Eye Exam: Pupils Equal, Pupils Reactive Throat Throat Exam: Oral Mucosa [place] & Moist, Oral Pharynx Normal Neck Neck Exam: Neck Supple, Trachea Midline Pulmonary Resp Exam: Clear Bilaterally, Breath Sounds Equal, No Distress Cardiology CV Exam: Regular, Normal Sinus Rhythm Gastrointestinal/Abdomen GI Exam: Soft, Non-Tender, Bowel Sounds Present Musculoskeletal MS Exam: Normal Gait MS Remarks Left hand swelling and mild erythema mild tenderness. Integumentary Skin Exam: Clear, Warm, Dry, Intact Skin Remarks Left hand swelling and mild erythema mild tenderness. Extremeties Extremities Exam: No Edema Neurologic Neuro Exam: Alert, Awake, Oriented, Speech Clear, Moving All Extremities, No Focal Deficits Psychiatric Psych Exam: Appropriate Responses VTE Prophylaxis VTE Prophylaxis Meds: Heparin PUD Prophylasis PUD Prophylaxis: Protonix Assessment/Plan Assessment/Plan ASSESSMENT AND PLAN 1. This is a 51-year-old male who came to the ER diagnosed with swelling, pain and redness/cellulitis of the left hand, most likely after a puncture wound. The patient is on vancomycin. The patient's pain and swelling is improving. The patient is also on clindamycin and Zosyn IV. Hand surgery input noted. Further recommendation per patient's progress. 2. Hypertension. Continue home medication. 3. Arthritis. Continue home medication. 4. Morbid obesity. 5. DVT prophylaxis with heparin 5000 units subcutaneous twice a day. 6. GI prophylaxis with Protonix 40 mg p.o. daily. 7. Check CBC and CMP in the morning. 8. We are going to manage the patient on a daily basis and make recommendation daily. Check CBC with diff CMP in AM. Discussed Condition with: Patient Nico Tubbs MD October 15, 2016 09:25
[2016-10-15] MEDS ORDERED: PHARMACY ORDERED LAB ONE (09:45)
--- NOTE | 2016-10-15 12:14 | HHI.PR ---
Subjective Remarks left hand feeling better Objective Vital Signs Date Time Temp Pulse Resp B/P Pulse Ox O2 Delivery O2 Flow Rate FiO2 10/15/16 08:51 94 21 10/15/16 04:00 60 10/15/16 04:00 97.7 60 22 103/57 93 10/15/16 00:00 98.1 52 15 94/43 94 10/15/16 00:00 52 10/14/16 20:00 97.8 65 17 108/55 94 10/14/16 20:00 64 10/14/16 19:05 95 10/14/16 16:33 62 10/14/16 16:30 97.9 68 16 135/55 99 I/O 10/14/16 10/14/16 10/14/16 10/15/16 10/15/16 10/15/16 07:00 15:00 23:00 07:00 15:00 23:00 Intake Total 450 ml 1506 ml 240 ml 800 ml Balance 450 ml 1506 ml 240 ml 800 ml Intake Oral 750 ml 240 ml IV Total 450 ml 756 ml 800 ml # Voids 2 2 Result Diagram: 10/15/16 0539 10/15/16 0539 Objective Remarks left hand minimal edema; full AROM; no erythema; no crepitus, no subQ emphysema , no induration +tinel's sign left ulnar nerve at elbow -tinel's sign left median and ulnar nerves at wrist AA x O x 3 he's very pleasant Assessment and Plan Problem List: (1) Subcutaneous air Status: Acute Plan: ok to d/c home on oral abx from hand standpoint when [facility] agrees f/u prn (2) Soft tissue injury of left hand Status: Acute Problem Qualifiers (1) Subcutaneous air: Qualified Code: T79.7XXA - Subcutaneous air, initial encounter Scooter Glaser III, MD October 15, 2016 12:14
[2016-10-15] MEDS: IBUPROFEN 600 MG TAB PO PRN (12:42)
[2016-10-16] VITALS (7 sets, daily range): BP systolic 115–148; BP diastolic 62–85; PULSE 57–81; RESP 16–20; TEMP 96.7–98.3; O2SAT 94–97
[2016-10-16] MEDS: CLINDAMYCIN INJ 600 MG in SODIUM CHLORIDE 0.9% INJ 100 ML IV SCH ×3 (00:29→17:42)
[2016-10-16] MEDS: HEPARIN SODIUM - SQ 10,000 UNITS/ML VIAL SQ SCH ×2 (02:18→12:47)
[2016-10-16] MEDS: VANCOMYCIN INJ 1,900 MG in SODIUM CHLORID 0.9% 500 ML INJ 500 ML IV SCH (02:19)
[2016-10-16] MEDS: PIPERACIL-TAZO 4.5 GM PREMIX 100 ML IV SCH ×4 (06:27→23:02)
[2016-10-16] MEDS: ACETAMINOPHEN/HYDROcodone 325 MG/5 MG TAB PO PRN ×2 (06:45→12:47)
[2016-10-16 08:12] LABS: AUTOMATED NEUTROPHIL # 4.3 TH/MM3 (1.8-7.7); BASOPHIL # 0.2 TH/MM3 (0-0.2); EOSINOPHIL # 0.3 TH/MM3 (0-0.4); EOSINOPHIL % 3.8 % (0.0-4.0); HEMATOCRIT 37.5 % (39.0-51.0); HEMO FLAGS DIFF FINAL; LYMPH % 21.2 % (9.0-44.0); LYMPHOCYTE # 1.5 TH/MM3 (1.0-4.8); MEAN CELL VOLUME 87.4 FL (80.0-100.0); MEAN CORPUSCULAR HEMOGLOBIN 27.7 PG (27.0-34.0); MEAN CORPUSCULAR HGB CONC 31.7 % (32.0-36.0); MONO % 8.4 % (0.0-8.0); NEUT % 63.6 % (16.0-70.0); PLATELET COUNT 106 TH/MM3 (150-450); RED BLOOD COUNT 4.29 MIL/MM3 (4.50-5.90); RED CELL DISTRIBUTION WIDTH 13.6 % (11.6-17.2); WHITE BLOOD COUNT 6.9 TH/MM3 (4.0-11.0)
[2016-10-16 08:21] LABS: CHLORIDE 107 MEQ/L (98-107); POTASSIUM 4.2 MEQ/L (3.5-5.1); SODIUM (NA) 140 MEQ/L (136-145)
[2016-10-16] MEDS: IBUPROFEN 600 MG TAB PO PRN (08:26)
[2016-10-16] MEDS: metFORMIN HCL 500 MG TAB PO SCH ×2 (08:27→17:46)
[2016-10-16] MEDS: PANTOPRAZOLE SOD 40 MG DELAYED RELEASE TAB PO SCH (08:27)
[2016-10-16] MEDS: LISINOPRIL 20 MG TAB PO SCH (08:27)
[2016-10-16 08:28] LABS: ANION GAP 5 MEQ/L (5-15); BICARBONATE 28.3 MEQ/L (21.0-32.0); BLOOD UREA NITROGEN 11 MG/DL (7-18)
[2016-10-16] MEDS: SODIUM CHLORIDE 0.9% FLUSH 10 ML FLUSH IV FLUSH SCH ×2 (08:29→23:02)
[2016-10-16 08:31] LABS: ALT (GPT) 20 U/L (12-78); AST (GOT) 12 U/L (15-37); GLOMERULAR FILTRATION RATE 123 ML/MIN (>89)
[2016-10-16 08:32] LABS: TOTAL BILIRUBIN ADULT 0.4 MG/DL (0.2-1.0)
[2016-10-16 08:34] LABS: ALKALINE PHOSPHATASE 70 U/L (45-117)
--- NOTE | 2016-10-16 10:34 | HHI.PR ---
Subjective History of Present Illness Patient feel better left hand swelling pain and redness better hand surgeon input noted. d/w YOCASTA Padilla c/o headache start tylenol. Review of Systems Constitutional Constitutional: Fatigue, Weakness Musculoskeletal MS Remarks Left hand swelling mild pain and redness improving. Integumentary Skin Remarks Left hand swelling mild pain and redness improving. Vitals/Results Intake & Output 10/15/16 10/15/16 10/16/16 15:00 23:00 07:00 Intake Total 850 ml 1500 ml Balance 850 ml 1500 ml Intake Oral 850 ml IV Total 1500 ml # Voids 2 1 2 Vital Signs Vital Signs Date Time Temp Pulse Resp B/P Pulse Ox O2 Delivery O2 Flow Rate FiO2 10/16/16 08:00 96.9 57 20 117/65 94 10/16/16 08:00 96 21 10/16/16 07:45 20 10/16/16 04:27 98.0 81 20 130/66 97 10/16/16 00:27 96.7 57 16 115/62 95 10/15/16 21:00 74 10/15/16 20:27 98.1 56 18 127/69 95 10/15/16 19:20 98 10/15/16 16:00 97.2 57 20 130/65 96 10/15/16 13:42 20 10/15/16 12:00 96.9 61 22 138/84 97 CBC/BMP: 10/16/16 0743 10/16/16 0743 Lab Results Laboratory Tests Test 10/16/16 07:43 White Blood Count 6.9 TH/MM3 Red Blood Count 4.29 MIL/MM3 Hemoglobin 11.9 GM/DL Hematocrit 37.5 % Mean Corpuscular Volume 87.4 FL Mean Corpuscular Hemoglobin 27.7 PG Mean Corpuscular Hemoglobin 31.7 % Concent Red Cell Distribution Width 13.6 % Platelet Count 106 TH/MM3 Mean Platelet Volume 8.3 FL Neutrophils (%) (Auto) 63.6 % Lymphocytes (%) (Auto) 21.2 % Monocytes (%) (Auto) 8.4 % Eosinophils (%) (Auto) 3.8 % Basophils (%) (Auto) 3.0 % Neutrophils # (Auto) 4.3 TH/MM3 Lymphocytes # (Auto) 1.5 TH/MM3 Monocytes # (Auto) 0.6 TH/MM3 Eosinophils # (Auto) 0.3 TH/MM3 Basophils # (Auto) 0.2 TH/MM3 CBC Comment DIFF FINAL Differential Comment Sodium Level 140 MEQ/L Potassium Level 4.2 MEQ/L Chloride Level 107 MEQ/L Carbon Dioxide Level 28.3 MEQ/L Anion Gap 5 MEQ/L Blood Urea Nitrogen 11 MG/DL Creatinine 0.68 MG/DL Estimat Glomerular Filtration 123 ML/MIN Rate Random Glucose 88 MG/DL Calcium Level 8.2 MG/DL Total Bilirubin 0.4 MG/DL Aspartate Amino Transf 12 U/L (AST/SGOT) Alanine Aminotransferase 20 U/L (ALT/SGPT) Alkaline Phosphatase 70 U/L Total Protein 6.4 GM/DL Albumin 2.8 GM/DL Physical Exam General General Appearance: Well Developed, Well Nourished, No Acute Distress, Comfortable Eyes Eye Exam: Pupils Equal, Pupils Reactive Throat Throat Exam: Oral Mucosa [place] & Moist, Oral Pharynx Normal Neck Neck Exam: Neck Supple, Trachea Midline Pulmonary Resp Exam: Clear Bilaterally, Breath Sounds Equal, No Distress Cardiology CV Exam: Regular, Normal Sinus Rhythm Gastrointestinal/Abdomen GI Exam: Soft, Non-Tender, Bowel Sounds Present Musculoskeletal MS Exam: Normal Gait MS Remarks Left hand swelling and mild erythema mild tenderness. Integumentary Skin Exam: Clear, Warm, Dry, Intact Skin Remarks Left hand swelling and mild erythema mild tenderness. Extremeties Extremities Exam: No Edema Neurologic Neuro Exam: Alert, Awake, Oriented, Speech Clear, Moving All Extremities, No Focal Deficits Psychiatric Psych Exam: Appropriate Responses VTE Prophylaxis VTE Prophylaxis Meds: Heparin PUD Prophylasis PUD Prophylaxis: Protonix Assessment/Plan Assessment/Plan ASSESSMENT AND PLAN 1. This is a 51-year-old male who came to the ER diagnosed with swelling, pain and redness/cellulitis of the left hand, most likely after a puncture wound. The patient is on vancomycin. The patient's pain and swelling is improving. The patient is also on clindamycin and Zosyn IV. Hand surgery input noted. Further recommendation per patient's progress. 2. Hypertension. Continue home medication. 3. Arthritis. Continue home medication. 4. Morbid obesity. 5. DVT prophylaxis with heparin 5000 units subcutaneous twice a day. 6. GI prophylaxis with Protonix 40 mg p.o. daily. 7. Check CBC and CMP in the morning. 8. We are going to manage the patient on a daily basis and make recommendation daily. Check CBC with diff CMP in AM. Discussed Condition with: Patient Nico Tubbs MD October 16, 2016 10:34
[2016-10-16] MEDS ORDERED: ACETAMINOPHEN 500 MG CPLT PO PRN (10:45)
[2016-10-16] MEDS: VANCOMYCIN INJ 2,000 MG in SODIUM CHLORID 0.9% 500 ML INJ 500 ML IV SCH (13:47)
[2016-10-17] VITALS: BP 118/53; PULSE 63; RESP 20; TEMP 97; O2SAT 97
[2016-10-17] MEDS: CLINDAMYCIN INJ 600 MG in SODIUM CHLORIDE 0.9% INJ 100 ML IV SCH ×2 (00:41→08:57)
[2016-10-17] MEDS: HEPARIN SODIUM - SQ 10,000 UNITS/ML VIAL SQ SCH (01:58)
[2016-10-17] MEDS: VANCOMYCIN INJ 2,000 MG in SODIUM CHLORID 0.9% 500 ML INJ 500 ML IV SCH (01:58)
[2016-10-17 04:00] VITALS: BP 116/59; PULSE 65; RESP 17; TEMP 96; O2SAT 94
[2016-10-17] MEDS: PIPERACIL-TAZO 4.5 GM PREMIX 100 ML IV SCH (04:38)
[2016-10-17 08:00] VITALS: BP 137/76; PULSE 66; RESP 18; TEMP 97.6; O2SAT 95; O2SAT 96
[2016-10-17 08:42] LABS: AUTOMATED NEUTROPHIL # 6.4 TH/MM3 (1.8-7.7); BASOPHIL % 0.4 % (0.0-2.0); EOSINOPHIL # 0.4 TH/MM3 (0-0.4); EOSINOPHIL % 4.1 % (0.0-4.0); HEMATOCRIT 38.3 % (39.0-51.0); HEMO FLAGS DIFF FINAL; LYMPH % 15.4 % (9.0-44.0); LYMPHOCYTE # 1.3 TH/MM3 (1.0-4.8); MEAN CORPUSCULAR HEMOGLOBIN 28.1 PG (27.0-34.0); MEAN CORPUSCULAR HGB CONC 32.3 % (32.0-36.0); MONO % 6.4 % (0.0-8.0); NEUT % 73.7 % (16.0-70.0); PLATELET COUNT 217 TH/MM3 (150-450); RED CELL DISTRIBUTION WIDTH 13.4 % (11.6-17.2); WHITE BLOOD COUNT 8.7 TH/MM3 (4.0-11.0)
[2016-10-17 08:50] LABS: CHLORIDE 106 MEQ/L (98-107); SODIUM (NA) 142 MEQ/L (136-145)
[2016-10-17 08:54] LABS: ANION GAP 5 MEQ/L (5-15)
[2016-10-17 08:55] LABS: BLOOD UREA NITROGEN 11 MG/DL (7-18)
[2016-10-17 08:57] LABS: ALT (GPT) 26 U/L (12-78)
[2016-10-17] MEDS: SODIUM CHLORIDE 0.9% FLUSH 10 ML FLUSH IV FLUSH SCH (08:57)
[2016-10-17 08:58] LABS: AST (GOT) 18 U/L (15-37); GLOMERULAR FILTRATION RATE 110 ML/MIN (>89)
[2016-10-17] MEDS: metFORMIN HCL 500 MG TAB PO SCH ×2 (08:58→09:00)
[2016-10-17] MEDS: LISINOPRIL 20 MG TAB PO SCH (08:58)
[2016-10-17] MEDS: PANTOPRAZOLE SOD 40 MG DELAYED RELEASE TAB PO SCH (08:58)
[2016-10-17 08:59] LABS: TOTAL BILIRUBIN ADULT 0.4 MG/DL (0.2-1.0)
[2016-10-17 09:00] LABS: ALKALINE PHOSPHATASE 73 U/L (45-117)
--- NOTE | 2016-10-17 09:01 | HHI.PR ---
Subjective History of Present Illness Patient feel better left hand swelling pain and redness almost resolved.. . d/ w YOCASTA Quevedo...ok to DC Home today. Review of Systems Constitutional Constitutional: Fatigue, Weakness Musculoskeletal MS Remarks Left hand swelling mild pain and redness improving. Integumentary Skin Remarks Left hand swelling mild pain and redness improving. Vitals/Results Intake & Output 10/16/16 10/16/16 10/17/16 15:00 23:00 07:00 Intake Total 950 ml 480 ml 1020 ml Output Total 2 ml Balance 950 ml 480 ml 1018 ml Intake Oral 950 ml 480 ml 220 ml IV Total 800 ml Output Urine Total 2 ml # Voids 5 2 2 # Bowel Movements 0 0 Vital Signs Vital Signs Date Time Temp Pulse Resp B/P Pulse Ox O2 Delivery O2 Flow Rate FiO2 10/17/16 08:00 97.6 66 18 137/76 95 10/17/16 04:00 96.0 65 17 116/59 94 10/17/16 00:00 97.0 63 20 118/53 97 10/16/16 21:25 95 21 10/16/16 21:00 68 10/16/16 20:30 98.3 62 18 148/80 95 10/16/16 16:00 97.8 65 20 136/85 96 10/16/16 13:47 20 10/16/16 09:26 20 CBC/BMP: 10/17/16 0719 10/17/16 0719 Lab Results Laboratory Tests Test 10/17/16 07:19 White Blood Count 8.7 TH/MM3 Red Blood Count 4.40 MIL/MM3 Hemoglobin 12.4 GM/DL Hematocrit 38.3 % Mean Corpuscular Volume 87.0 FL Mean Corpuscular Hemoglobin 28.1 PG Mean Corpuscular Hemoglobin 32.3 % Concent Red Cell Distribution Width 13.4 % Platelet Count 217 TH/MM3 Mean Platelet Volume 8.1 FL Neutrophils (%) (Auto) 73.7 % Lymphocytes (%) (Auto) 15.4 % Monocytes (%) (Auto) 6.4 % Eosinophils (%) (Auto) 4.1 % Basophils (%) (Auto) 0.4 % Neutrophils # (Auto) 6.4 TH/MM3 Lymphocytes # (Auto) 1.3 TH/MM3 Monocytes # (Auto) 0.6 TH/MM3 Eosinophils # (Auto) 0.4 TH/MM3 Basophils # (Auto) 0.0 TH/MM3 CBC Comment DIFF FINAL Differential Comment Sodium Level 142 MEQ/L Potassium Level 4.0 MEQ/L Chloride Level 106 MEQ/L Carbon Dioxide Level 31.0 MEQ/L Anion Gap 5 MEQ/L Blood Urea Nitrogen 11 MG/DL Creatinine 0.75 MG/DL Estimat Glomerular Filtration 110 ML/MIN Rate Random Glucose 90 MG/DL Calcium Level 8.8 MG/DL Total Bilirubin 0.4 MG/DL Aspartate Amino Transf 18 U/L (AST/SGOT) Alanine Aminotransferase 26 U/L (ALT/SGPT) Alkaline Phosphatase 73 U/L Total Protein 6.8 GM/DL Albumin 3.0 GM/DL Physical Exam General General Appearance: Well Developed, Well Nourished, No Acute Distress, Comfortable Eyes Eye Exam: Pupils Equal, Pupils Reactive Throat Throat Exam: Oral Mucosa [place] & Moist, Oral Pharynx Normal Neck Neck Exam: Neck Supple, Trachea Midline Pulmonary Resp Exam: Clear Bilaterally, Breath Sounds Equal, No Distress Cardiology CV Exam: Regular, Normal Sinus Rhythm Gastrointestinal/Abdomen GI Exam: Soft, Non-Tender, Bowel Sounds Present Musculoskeletal MS Exam: Normal Gait MS Remarks Left hand swelling and mild erythema mild tenderness. Integumentary Skin Exam: Clear, Warm, Dry, Intact Skin Remarks Left hand swelling and mild erythema mild tenderness. Extremeties Extremities Exam: No Edema Neurologic Neuro Exam: Alert, Awake, Oriented, Speech Clear, Moving All Extremities, No Focal Deficits Psychiatric Psych Exam: Appropriate Responses VTE Prophylaxis VTE Prophylaxis Meds: Heparin PUD Prophylasis PUD Prophylaxis: Protonix Assessment/Plan Assessment/Plan ASSESSMENT AND PLAN 1. This is a 51-year-old male who came to the ER diagnosed with swelling, pain and redness/cellulitis of the left hand, most likely after a puncture wound. The patient is on vancomycin. The patient's pain and swelling is improving. The patient is also on clindamycin and Zosyn IV. Hand surgery input noted. Further recommendation per patient's progress. 2. Hypertension. Continue home medication. 3. Arthritis. Continue home medication. 4. Morbid obesity. 5. DVT prophylaxis with heparin 5000 units subcutaneous twice a day. 6. GI prophylaxis with Protonix 40 mg p.o. daily. ok to DC Home today. f/u with pcp 1 week. Discussed Condition with: Patient Nico Tubbs MD October 17, 2016 09:01 Nico Tubbs MD October 17, 2016 09:01
[2016-10-17] MEDS ORDERED: METF500 PO (10:41)
[2016-10-17] MEDS ORDERED: CLEO300C2 PO (10:41)
[2016-10-17 12:00] VITALS: BP 123/81; PULSE 71; RESP 18; TEMP 97.7; O2SAT 94
[2016-10-18] MEDS ORDERED: VANCOMYCIN TROUGH ONE (01:45)
--- NOTE | 2016-10-18 08:44 | MD ---
cc: NICO ASKEW MD ADMISSION DATE: 10/14/2016 DISCHARGE DATE: 10/17/2016 Okay to discharge the patient home. CONDITION AT THE TIME OF DISCHARGE Satisfactory. ACTIVITY Activity as tolerated. DIET Cardiac diet, ADA 1800 calorie diet. ALLERGIES NO KNOWN DRUG ALLERGIES. DISCHARGE MEDICATIONS Include: 1. Clindamycin 300 mg p.o. q. 6-hours for 7 days. 2. Metformin 500 mg twice a day. 3. Ibuprofen 600 mg p.o. q.6 hours p.r.n. pain. 4. Victoza injection 0.6 mg subcutaneous daily. 5. Lisinopril 20 mg p.o. daily. 6. Tramadol 50 mg p.o. daily. The patient advised to follow up with PCP. ADMISSION DIAGNOSIS Swelling, redness/cellulitis of the left hand. DISCHARGE DIAGNOSIS Cellulitis of the left hand, improved. The patient was given IV Zosyn, IV vancomycin and clindamycin IV. Patient condition improved. Other problems include hypertension, diabetes mellitus, morbid obesity. HOSPITAL COURSE This is a 51-year-old male admitted with above-mentioned complaints and problem, was given IV antibiotic. Hand surgeon saw the patient. The patient does not need any hand intervention. The patient remained stable. X-ray of the hand done shows soft tissue swelling dorsally of the left hand and probably with some associated gas, no acute bony abnormality identified. The patient was discharged in satisfactory condition. The patient's blood cultures x2 were negative for 3 days. The patient had leukocytosis which has resolved. Further details in the medical record. Nico Askew MD EA/KAY /10:46 AM /8:42 AM
== END 2016-10-17 13:00 | disposition home or self-care (01) | DRG 603 ==
LOC: PHEFT 21:04 → PHEDA 10-14 00:35 → PHICU 10-14 04:43 → PH3A 10-15 08:30
PROVIDERS: ADMIT Family Medicine; ATTEND Family Medicine
DX: L03.114 Cellulitis of left upper limb (principal); Z68.43 Body mass index [BMI] 50.0-59.9, adult; E66.01 Morbid (severe) obesity due to excess calories; I10 Essential (primary) hypertension; M19.90 Unspecified osteoarthritis, unspecified site; E78.5 Hyperlipidemia, unspecified; E11.9 Type 2 diabetes mellitus without complications; Z79.4 Long term (current) use of insulin; R51 Headache
CPT/HCPCS: 73130; 80048; 80053; 80202; 82948; 83605; 85025; 87040; 90471; 90714; 96365; 96375; J1644; J2543; J3370; J7040

== ENCOUNTER 2017-01-26 04:07 | Observation (INO) | payer SELFPAY ==
[2017-01-26] VITALS (10 sets, daily range): BP systolic 110–154; BP diastolic 62–73; PULSE 66–113; RESP 16–28; TEMP 97.7–98.4; O2SAT 93–100
[~2017-01-26] VITALS: Ht 177.8 cm; Wt 175.6 kg
[~2017-01-26 04:07] MED LIST changes: -CHOLMIS PO; +CLEO300C2 PO; +METF500 PO
--- NOTE | 2017-01-26 04:29 | PD ---
HPI Chief Complaint: shortness of breath Time Seen by Provider: 04:23 Travel History International Travel<30 days: No Contact w/Intl Traveler<30days: No Traveled to known affect area: No History of Present Illness HPI 51-year-old male complains of wheezing and shortness of breath. Patient has history of COPD. Patient started having increasing wheezing and shortness of breath over the past 2 days. Patient denies any headache. Patient denies any chest pain. Patient denies any fever chills. Patient denies any abdominal pain. Patient denies any nausea vomiting diarrhea. Patient states that he has increasing swelling of lower extremity recently. Patient has history of hypertension, diabetes, hyperlipidemia. Patient states that his stop smoking a month ago. Patient denies any history of CHF. Patient states that he was on diuretic in the past however that was stopped. Patient was put on metformin and he stopped taking it secondary to side effects. Patient was put on different medications for diabetes but he stopped taking them. Patient also is not on any inhaler. Patient also is not taking anything for hypertension. PFSH Past Medical History Hx Anticoagulant Therapy: Yes (asa 81mg) Alzheimer's Disease: No Autoimmune Disease: No Blood Disorders: Yes Heart Rhythm Problems: No Cancer: No Cardiac Catheterization: No Cardiovascular Problems: Yes (htn on meds) High Cholesterol: Yes Chemotherapy: No Chest Pain: Yes (RESPIRATOY NOT CARDIAC) Congestive Heart Failure: No Diabetes: Yes (DM type 2) Diminished Hearing: No Endocrine: No Gastrointestinal Disorders: Yes GERD: Yes Glaucoma: No Genitourinary: No Hypertension: Yes Immune Disorder: No Implanted Vascular Access Dvce: No Musculoskeletal: Yes (RUPTURED LUMBAR DISC YEARS AGO) Neurologic: Yes (NEUROPATHY) Psychiatric: No Reproductive: No Respiratory: Yes Immunizations Current: Yes Radiation Therapy: No Thyroid Disease: No Past Surgical History Arteriovenous Shunt: No Coronary Artery Bypass Graft: No Eye Surgery: Yes (LEFT EYE CORRECTION CHILDHOOD) Insulin Pump: No Joint Replacement: No Pacemaker: No Other Surgery: No Social History Alcohol Use: Yes (Occ.) Tobacco Use: No Substance Use: No Allergies-Medications (Allergen,Severity, Reaction): Coded Allergies: No Known Allergies (Verified , 01/26/17) Reported Meds & Prescriptions Reported Meds & Active Scripts Active Ibuprofen 600 Mg Tab 600 Mg PO Q6H PRN Reported Lisinopril 20 Mg Tab 20 Mg PO DAILY Review of Systems General / Constitutional: No: Fever Eyes: No: Visual changes HENT: No: Headaches Cardiovascular: No: Chest Pain or Discomfort Respiratory: Positive: Shortness of Breath, Wheezing Gastrointestinal: No: Abdominal Pain Genitourinary: No: Dysuria Musculoskeletal: No: Pain Skin: No Rash Neurologic: No: Weakness Psychiatric: No: Depression Endocrine: No: Polydipsia Hematologic/Lymphatic: No: Easy Bruising Physical Exam Narrative GENERAL: Well-nourished, well-developed patient. SKIN: Focused skin assessment warm/dry. HEAD: Normocephalic. EYES: No scleral icterus. No injection or drainage. NECK: Supple, trachea midline. No JVD or lymphadenopathy. CARDIOVASCULAR: Regular rate and rhythm without murmurs, gallops, or rubs. RESPIRATORY: Breath sounds equal bilaterally. No accessory muscle use. Patient has moderate expiratory wheezes bilaterally. No rhonchi. GASTROINTESTINAL: Abdomen soft, non-tender, nondistended. MUSCULOSKELETAL: No cyanosis. Patient has +1 to +2 pitting edema lower extremity. BACK: Nontender without obvious deformity. No CVA tenderness. Neurologic exam normal. Data Data Last Documented VS Vital Signs Date Time Temp Pulse Resp B/P (MAP) Pulse Ox O2 Delivery O2 Flow Rate FiO2 01/26/17 04:52 113 28 96 Nasal Cannula 2.00 01/26/17 04:48 110/67 (81) 01/26/17 04:13 97.7 Orders Orders Complete Blood Count With Diff (01/26/17 04:23) Comprehensive Metabolic Panel (01/26/17 04:23) B-Type Natriuretic Peptide (01/26/17 04:23) Influenzae A/B Antigen (01/26/17 04:23) Iv Access Insert/Monitor (01/26/17 04:23) Ecg Monitoring (01/26/17 04:23) Oximetry (01/26/17 04:23) Chest, Single Ap (01/26/17 04:23) Sodium Chloride 0.9% Flush (Ns Flush) (01/26/17 04:30) Methylprednisolone So Succ Inj (Solumedr (01/26/17 04:30) Albuterol-Ipratropium Neb (Duoneb Neb) (01/26/17 04:30) Resp Mdi/Instruction (01/26/17 05:15) Labs Laboratory Tests Test 01/26/17 05:20 01/26/17 05:25 White Blood Count 12.0 TH/MM3 Red Blood Count 4.55 MIL/MM3 Hemoglobin 13.0 GM/DL Hematocrit 39.3 % Mean Corpuscular Volume 86.3 FL Mean Corpuscular Hemoglobin 28.5 PG Mean Corpuscular Hemoglobin Concent 33.1 % Red Cell Distribution Width 13.3 % Platelet Count 215 TH/MM3 Mean Platelet Volume 7.4 FL Neutrophils (%) (Auto) 69.6 % Lymphocytes (%) (Auto) 17.2 % Monocytes (%) (Auto) 12.1 % Eosinophils (%) (Auto) 0.9 % Basophils (%) (Auto) 0.2 % Neutrophils # (Auto) 8.3 TH/MM3 Lymphocytes # (Auto) 2.1 TH/MM3 Monocytes # (Auto) 1.5 TH/MM3 Eosinophils # (Auto) 0.1 TH/MM3 Basophils # (Auto) 0.0 TH/MM3 CBC Comment DIFF FINAL Differential Comment Blood Urea Nitrogen 21 MG/DL Creatinine 0.85 MG/DL Random Glucose 164 MG/DL Total Protein 7.3 GM/DL Albumin 3.4 GM/DL Calcium Level 8.1 MG/DL Aspartate Amino Transf (AST/SGOT) 22 U/L Alanine Aminotransferase (ALT/SGPT) 23 U/L Total Bilirubin 0.3 MG/DL Sodium Level 138 MEQ/L Potassium Level 3.8 MEQ/L Chloride Level 100 MEQ/L Carbon Dioxide Level 30.7 MEQ/L Anion Gap 7 MEQ/L Estimat Glomerular Filtration Rate 95 ML/MIN B-Type Natriuretic Peptide 34 PG/ML [facility] Medical Decision Making Medical Screen Exam Complete: Yes Emergency Medical Condition: Yes Interpretation(s) Last Impressions Chest X-Ray 01/26/17 0423 Signed Impressions: Service Date/Time: January 04:42 - CONCLUSION: 1. No acute cardiopulmonary disease. Imtiaz Red MD 5:44 AM. CBC within normal limit. Influenza AB antigen negative. 6:05 AM. BNP 34. Differential Diagnosis Differential diagnosis including acute exacerbation COPD, bronchitis, pneumonia , PE, pneumothorax, CHF. Narrative Course 51-year-old male with wheezing and shortness of breath. History of COPD. Albuterol with Atrovent unit dose treatment 3. Solu-Medrol 125 mg IV. Rocephin 1 g IV. Zithromax 500 mg by mouth. Diagnosis Primary Impression: COPD with acute exacerbation Admitting Information Admitting Physician Requests: it Ricky Rouse MD Jan 26, 2017 04:29
[2017-01-26] MEDS ORDERED: methylPREDNISolone SOD SUCC 125 MG/2 ML VIAL IVP ONE (04:30)
[2017-01-26] MEDS ORDERED: SODIUM CHLORIDE 0.9% FLUSH 10 ML FLUSH IVF PRN (04:30)
[2017-01-26] MEDS: RESP: ALBUTEROL 2.5 MG/IPRATROPIUM 0.5 MG NEB (SCH) INH (04:51)
--- NOTE | 2017-01-26 04:56 | RADRPT ---
EXAM DATE/TIME: 01/26/2017 04:42 [facility] COMPARISON: CHEST PA & LAT, April 11, 2015, 0:58. INDICATIONS : Shortness of breath for 48 hours MEDICAL HISTORY : Chronic obstructive pulmonary disease. SURGICAL HISTORY : None. ENCOUNTER: Initial ACUITY: 2 days PAIN SCORE: 0/10 LOCATION: Bilateral chest FINDINGS: Stable mild lower lung zone interstitial prominence. No significant focal pleural or parenchymal opac ities. Cardiomediastinal contours are within normal limits. Bony thorax is intact. CONCLUSION: 1. No acute cardiopulmonary disease. Imtiaz Red MD on January 26, 2017 at 4:53 Board Certified Radiologist. This report was verified electronically.
[2017-01-26 05:31] LABS: AUTOMATED NEUTROPHIL # 8.3 TH/MM3 (1.8-7.7); BASOPHIL % 0.2 % (0.0-2.0); EOSINOPHIL # 0.1 TH/MM3 (0-0.4); EOSINOPHIL % 0.9 % (0.0-4.0); HEMATOCRIT 39.3 % (39.0-51.0); HEMO FLAGS DIFF FINAL; LYMPH % 17.2 % (9.0-44.0); LYMPHOCYTE # 2.1 TH/MM3 (1.0-4.8); MEAN CELL VOLUME 86.3 FL (80.0-100.0); MEAN CORPUSCULAR HEMOGLOBIN 28.5 PG (27.0-34.0); MEAN CORPUSCULAR HGB CONC 33.1 % (32.0-36.0); MONO % 12.1 % (0.0-8.0); NEUT % 69.6 % (16.0-70.0); PLATELET COUNT 215 TH/MM3 (150-450); RED BLOOD COUNT 4.55 MIL/MM3 (4.50-5.90); RED CELL DISTRIBUTION WIDTH 13.3 % (11.6-17.2)
[2017-01-26 05:55] LABS: CHLORIDE 100 MEQ/L (98-107); POTASSIUM 3.8 MEQ/L (3.5-5.1); SODIUM (NA) 138 MEQ/L (136-145)
[2017-01-26 05:59] LABS: ANION GAP 7 MEQ/L (5-15); BICARBONATE 30.7 MEQ/L (21.0-32.0); BLOOD UREA NITROGEN 21 MG/DL (7-18)
[2017-01-26 06:02] LABS: ALT (GPT) 23 U/L (12-78); AST (GOT) 22 U/L (15-37); GLOMERULAR FILTRATION RATE 95 ML/MIN (>89)
[2017-01-26 06:04] LABS: TOTAL BILIRUBIN ADULT 0.3 MG/DL (0.2-1.0)
[2017-01-26 06:05] LABS: ALKALINE PHOSPHATASE 84 U/L (45-117)
[2017-01-26] MEDS ORDERED: AZITHROMYCIN 250 MG TAB PO ONE (06:15)
[2017-01-26] MEDS ORDERED: cefTRIAXone INJ 1,000 MG in SODIUM CHLORIDE 0.9% INJ 100 ML IV ONE (06:15)
[2017-01-26] MEDS ORDERED: RESP: ALBUTEROL 2.5 MG/IPRATROPIUM 0.5 MG NEB (SCH) INH ONE (06:15)
[2017-01-26] MEDS ORDERED: RESP: ALBUTEROL 2.5 MG/IPRATROPIUM 0.5 MG NEB (PRN) NEB (06:45)
[2017-01-26] MEDS ORDERED: SODIUM CHLORIDE 0.9% FLUSH 10 ML FLUSH IV FLUSH PRN (06:45)
[2017-01-26] MEDS ORDERED: NALOXONE HCL 0.4 MG/ML AMP IV PRN (06:45)
[2017-01-26] MEDS: SODIUM CHLORIDE 0.9% FLUSH 10 ML FLUSH IV FLUSH SCH ×2 (09:00→21:27)
[2017-01-26] MEDS ORDERED: RESP: ALBUTEROL 2.5 MG/IPRATROPIUM 0.5 MG NEB (SCH) NEB (10:00)
[2017-01-26] MEDS ORDERED: predniSONE 20 MG TAB PO ONE (14:00)
[2017-01-26] MEDS ORDERED: GLUCAGON 1 MG/ML VIAL OTHER PRN (15:30)
[2017-01-26] MEDS ORDERED: DEXTROSE 50% IN WATER 50 ML VIAL(D50) IV PRN (15:30)
[2017-01-26] MEDS: RESP: ALBUTEROL 2.5 MG/IPRATROPIUM 0.5 MG NEB (SCH) NEB ×2 (15:35→20:01)
--- NOTE | 2017-01-26 15:47 | HHI.HP ---
[facility] Service [place] [facility] Primary Care Physician Jaspreet Berkowitz DO Admission Diagnosis acute exacerbation COPD Diagnoses: (1) Acute dyspnea Diagnosis: Principal (2) Acute respiratory distress Diagnosis: Principal (3) Edema Diagnosis: Principal (4) Hypertension Diagnosis: Principal (5) Cough Diagnosis: Principal (6) Type 2 diabetes mellitus Diagnosis: Principal Travel History International Travel<30 Days: No Contact w/Intl Traveler <30 Da: No Traveled to Known Affected Are: No History of Present Illness Mr. Mosley is a 51-year-old male. He came into our hospital overnight after having 2 days of worsening respiratory distress and dyspnea. He reports that his daughter was sick and has been an illness going around his family. 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 Lung disease is present and he has been told this could be COPD, but he has not had formal testing to differentiate if this is COPD or another pulmonary condition. Regardless of the cause is present respiratory status is exacerbated. At baseline he reports respiratory symptoms including dyspnea on exertion and poor tolerance with any form of obstruction such as a respirator mask for painting. She does not use any inhalers or chronic inhaled steroids at baseline. Echocardiograms have been performed in the past and showed no evidence of congestive heart failure. He is obese and this may be contributory. However, symptoms at reported baseline appeared to be worse than would be expected for his weight. A CT scan of the chest in 2011 showed no evidence of pulmonary fibrosis. A stress test from 2014 showed no evidence of ischemic disease and also correlated with echo from 2005 which showed no evidence of CHF. His last echo was 11 years ago, so a repeat evaluation of his ejection fraction is warranted. Other baseline health conditions are hypertension, diabetes mellitus type 2, hyperlipidemia, and obesity. She is not currently smoking. No history of childhood exposures and no history of childhood asthma. When seen today he still has wheezing and a cough is still present. He cannot recall if he has ever been evaluated by a beam dyer operator and has never had an outpatient beam dyer operator to follow with. Respiratory symptoms have been present for about 10 years. He has been hospitalized before for exacerbation of his respiratory status. No history of intubation per patient. Review of Systems Constitutional: DENIES: Fever, Chills, Change in appetite Endocrine: DENIES: Heat/cold intolerance Eyes: DENIES: Blurred vision, Eye pain Respiratory: COMPLAINS OF: Cough, Wheezing, Sputum production, Shortness of breath Cardiovascular: DENIES: Chest pain, Palpitations, Syncope Gastrointestinal: DENIES: Abdominal pain, Black stools, Bloody stools Musculoskeletal: DENIES: Joint pain, Muscle aches, Stiffness Integumentary: DENIES: Abnormal pigmentation Hematologic/lymphatic: DENIES: Bruising Immunologic/allergic: DENIES: Eczema Neurologic: DENIES: Abnormal gait Psychiatric: DENIES: Anxiety, Confusion, Hallucinations Past Family Social History Past Medical History Diabetes mellitus type 2 Hyperlipidemia Obesity Hypertension Possible COPD versus other chronic pulmonary disease Past Surgical History Repair of left eye strabismus Reported Medications Reported Meds & Active Scripts Active Ibuprofen 600 Mg Tab 600 Mg PO Q6H PRN Reported Lisinopril 20 Mg Tab 20 Mg PO DAILY Allergies: Coded Allergies: No Known Allergies (Verified , 01/26/17) Family History Myocardial infarction in father and paternal grandfather Breast cancer and hyperlipidemia in mother Social History Past history of smoking Chronic Aerosol Pain Exposure No drug abuse No alcohol abuse Physical Exam Vital Signs Vital Signs Date Time Temp Pulse Resp B/P (MAP) Pulse Ox O2 Delivery O2 Flow Rate FiO2 01/26/17 09:37 96 Nasal Cannula 2.00 01/26/17 09:04 98.2 95 18 150/73 (98) 97 01/26/17 08:08 01/26/17 07:22 74 18 146/70 (95) 95 Nasal Cannula 2.00 01/26/17 06:32 98.4 89 28 133/66 (88) 100 2.00 01/26/17 04:52 113 28 96 Nasal Cannula 2.00 01/26/17 04:51 96 Nasal Cannula 2.00 01/26/17 04:48 113 28 110/67 (81) 96 Nasal Cannula 2.00 01/26/17 04:13 97.7 75 20 154/67 (96) 93 Physical Exam GENERAL: NAD, A&Ox3, obesity HEAD: Normocephalic. NECK: Supple, trachea midline. No lymphadenopathy. EYES: No scleral icterus. No injection or drainage. CARDIOVASCULAR: Regular rate and rhythm without murmurs, gallops, or rubs. RESPIRATORY: Breath sounds equal bilaterally. No accessory muscle use. Bilateral wheezing. GASTROINTESTINAL: Abdomen soft, non-tender, nondistended. MUSCULOSKELETAL: No cyanosis. Lower extremity edema SKIN: Warm and dry. NEURO: No focal neurological deficitis. Laboratory Laboratory Tests Test 01/26/17 05:20 01/26/17 05:25 White Blood Count 12.0 Red Blood Count 4.55 Hemoglobin 13.0 Hematocrit 39.3 Mean Corpuscular Volume 86.3 Mean Corpuscular Hemoglobin 28.5 Mean Corpuscular Hemoglobin Concent 33.1 Red Cell Distribution Width 13.3 Platelet Count 215 Mean Platelet Volume 7.4 Neutrophils (%) (Auto) 69.6 Lymphocytes (%) (Auto) 17.2 Monocytes (%) (Auto) 12.1 Eosinophils (%) (Auto) 0.9 Basophils (%) (Auto) 0.2 Neutrophils # (Auto) 8.3 Lymphocytes # (Auto) 2.1 Monocytes # (Auto) 1.5 Eosinophils # (Auto) 0.1 Basophils # (Auto) 0.0 CBC Comment DIFF FINAL Differential Comment Blood Urea Nitrogen 21 Creatinine 0.85 Random Glucose 164 Total Protein 7.3 Albumin 3.4 Calcium Level 8.1 Alkaline Phosphatase 84 Aspartate Amino Transf (AST/SGOT) 22 Alanine Aminotransferase (ALT/SGPT) 23 Total Bilirubin 0.3 Sodium Level 138 Potassium Level 3.8 Chloride Level 100 Carbon Dioxide Level 30.7 Anion Gap 7 Estimat Glomerular Filtration Rate 95 B-Type Natriuretic Peptide 34 Date/Time Source Procedure Growth Status 01/26/17 04:45 Nasal Washing Influenza Types A,B Antigen (LEON) - Final NEGATIVE FOR FLU A AND B ANTIGEN.... Complete Result Diagram: 01/26/1751901/26/17519 Caprini VTE Risk Assessment Caprini VTE Risk Assessment: Mod/High Risk (score >= 2) Caprini Risk Assessment Model Point Value = 1 Point Value = 2 Point Value = 3 Point Value = 5 Age 41-60 Minor surgery BMI > 25 kg/m2 Swollen legs Varicose veins or History of unexplained or recurrent spontaneous Oral contraceptives or hormone replacement Sepsis (< 1 month) Serious lung disease, including pneumonia (< 1 month) Abnormal pulmonary function Acute myocardial infarction Congestive heart failure (< 1 month) History of inflammatory bowel disease Medical patient at bed rest Age 61-74 Arthroscopic surgery Major open surgery (> 45 min) Laparoscopic surgery (> 45 min) Malignancy Confined to bed (> 72 hours) Immobilizing plaster cast Central venous access Age >= 75 History of VTE Family history of VTE Factor V Leiden Prothrombin [id number] Lupus anticoagulant Anticardiolipin antibodies Elevated serum homocysteine Heparin-induced thrombocytopenia Other congenital or acquired thrombophilia Stroke (< 1 month) Elective arthroplasty Hip, pelvis, or leg fracture Acute spinal cord injury (< 1 month) Prophylaxis Regimen Total Risk Factor Score Risk Level Prophylaxis Regimen 0-1 Low Early ambulation 2 Moderate Order ONE of the following: *Sequential Compression Device (SCD) *Heparin 5000 units SQ BID 3-4 Higher Order ONE of the following medications: *Heparin 5000 units SQ TID *Enoxaparin/Lovenox 40 mg SQ daily (WT < 150 kg, CrCl > 30 mL/min) *Enoxaparin/Lovenox 30 mg SQ daily (WT < 150 kg, CrCl > 10-29 mL/min) *Enoxaparin/Lovenox 30 mg SQ BID (WT < 150 kg, CrCl > 30 mL/min) AND/OR *Sequential Compression Device (SCD) 5 or more Highest Order ONE of the following medications: *Heparin 5000 units SQ TID (Preferred with Epidurals) *Enoxaparin/Lovenox 40 mg SQ daily (WT < 150 kg, CrCl > 30 mL/min) *Enoxaparin/Lovenox 30 mg SQ daily (WT < 150 kg, CrCl > 10-29 mL/min) *Enoxaparin/Lovenox 30 mg SQ BID (WT < 150 kg, CrCl > 30 mL/min) AND *Sequential Compression Device (SCD) Assessment and Plan Problem List: (1) Type 2 diabetes mellitus ICD Code: E11.9 - Type 2 diabetes mellitus without complications Status: Acute (2) Acute respiratory distress ICD Code: R06.00 - Dyspnea, unspecified (3) Cough ICD Code: R05 - Cough Status: Acute (4) Acute dyspnea ICD Code: R06.00 - Dyspnea, unspecified (5) Hypertension ICD Code: I10 - Hypertension Status: Acute (6) Neuropathy ICD Code: G62.9 - Neuropathy Status: Acute Assessment and Plan Assessment and plan 51-year-old male admitted secondary to respiratory distress and acute dyspnea. Acute respiratory distress Acute dyspnea History of pulmonary nodularity Possible COPD versus other chronic pulmonary disease Continue oxygen supplements as needed Schedule duo nebs When necessary albuterol Azithromycin Systemic steroids Follow for improvement in respiratory status Follow for improvement in exertional tolerance next Pulmonology consulted MRI of chest obtained to follow-up history of pulmonary nodule and to evaluate for pulmonary fibrosis Evaluate for autoimmunity with ELDON, rheumatoid factor, CRP, and ESR Bedside pulmonary function testing ordered, additionally will repeat when respiratory status improves Lower extremity edema Obtain echocardiogram to evaluate for cardiomyopathy Diabetes mellitus type 2 Follow blood sugars Insulin sliding scale Diabetic diet Hyperlipidemia Obesity No change to baseline treatment Dietary changes recommended (increased fiber) Follow as an outpatient Hypertension Follow blood pressures Continue lisinopril DVT prophylaxis Lovejenaex Marcell Ca MD Jan 26, 2017 15:47
[2017-01-26] MEDS: guaiFENesin SOLUTION 200 MG/10 ML CUP PO PRN ×2 (16:14→21:26)
[2017-01-26] MEDS: ENOXAPARIN SODIUM 40 MG/0.4 ML SYRINGE SQ SCH (17:36)
[2017-01-26] MEDS: INSULIN ASPART SUPPLEMENTAL SCALE SQ SCH ×2 (17:49→21:00)
[2017-01-26] MEDS: SODIUM CHLOR 0.45% 1000 ML INJ 1,000 ML IV SCH (19:45)
[2017-01-26] MEDS ORDERED: predniSONE 20 MG TAB PO SCH (21:00)
[2017-01-26] MEDS: BUDESONIDE-FORMOTEROL 160/4.5 MCG INHALER INH SCH (21:00)
[2017-01-26] MEDS: methylPREDNISolone SOD SUCC 40 MG/1 ML VIAL IV PUSH SCH (21:26)
[2017-01-26 21:34] LABS: RHEUMATOID FACTOR TRIGGER LESS THAN 10.0 IU/ML (0.0-14.9)
--- NOTE | 2017-01-26 21:43 | RADRPT ---
EXAM DATE/TIME: 01/26/2017 20:54 [facility] COMPARISON: No previous studies available for comparison. INDICATIONS : Infiltrate. Shortness of breath. Cough RADIATION DOSE: 30.98 CTDIvol (mGy) ; Patient body habitus MEDICAL HISTORY : Chronic obstructive pulmonary disease. Hypertension. Congestive heart failure. SURGICAL HISTORY : None. ENCOUNTER: Initial ACUITY: 2 days PAIN SCALE: 0/10 LOCATION: chest TECHNIQUE: Volumetric scanning of the chest was performed. Using automated exposure control and adjustment of t he mA and/or kV according to patient size, radiation dose was kept as low as reasonably achievable to obtain optimal diagnostic quality images. DICOM format image data is available electronically for r eview and comparison. Follow-up recommendations for detected pulmonary nodules are based at a minimum on nodule size and pa tient risk factors according to Fleischner Society Guidelines. FINDINGS: LUNGS: There is no consolidation or pneumothorax. No concerning pulmonary nodule is visualized. PLEURAE: Minimal pleural thickening and subjacent stranding laterally in the right midchest is nonspecific and may represent a mild pneumonitis. MEDIASTINUM: The heart and great vessels demonstrate no acute abnormality. There are some prominent pretracheal ly mph nodes in the mediastinum which are contain fatty cara and are almost certainly reactive. AXILLAE: Within normal limits. No lymphadenopathy. MUSCULOSKELETAL: Within normal limits for patient age. MISCELLANEOUS: The visualized upper abdominal organs demonstrate no acute abnormality. CONCLUSION: 1. Benign-appearing pleural thickening with subjacent stranding laterally in the right midchest is no nspecific and may represent a mild pneumonitis. No confluent infiltrate. 2. Prominent pretracheal lymph nodes in the mediastinum all contain fatty cara and are likely reactiv e. Zev Ceballos MD on January 26, 2017 at 21:37 Board Certified Radiologist. This report was verified electronically.
[2017-01-26 22:42] LABS: BLOOD GAS BASE EXCESS 6.6 mmol/L (-2-2); BLOOD GAS CARBOXYHEMOGLOBIN 1.4 % (0-4); BLOOD GAS HCO3 32 mmol/L (22-26); BLOOD GAS METHEMOGLOBIN 1.1 % (0-2); BLOOD GAS O2 HGB SATURATION 94 % (90-100); BLOOD GAS OXYGEN CONTENT 16.7 Vol % (12.0-20.0); BLOOD GAS PCO2 54 mmHg (38-42); BLOOD GAS PO2 85 mmHg (61-120); BLOOD GAS TOTAL HGB 12.6 G/DL (12.0-16.0)
[2017-01-26 22:43] LABS: CRITICAL VALUE YES; DRAW SITE RT RADIAL; LITER FLOW 2 L/M; NUMBER OF ARTERIAL PUNCTURES 1; OXYGEN DEVICE NASAL CANNULA; STAT NO; ULNAR PULSE PRESENT
[2017-01-26] MEDS: RESP: ALBUTEROL 2.5 MG/3 ML NEB (PRN) NEB (22:47)
[2017-01-27] VITALS (9 sets, daily range): BP systolic 109–157; BP diastolic 67–85; PULSE 66–76; RESP 16–22; TEMP 96.2–98.8; O2SAT 91–100
[2017-01-27] MEDS ORDERED: ACETAMINOPHEN 325 MG TAB PO PRN (01:00)
[2017-01-27] MEDS: RESP: ALBUTEROL 2.5 MG/3 ML NEB (PRN) NEB (03:44)
--- NOTE | 2017-01-27 05:23 | MB ---
cc: JASPREET JARAMILLO DATE OF CONSULTATION 01/26/2017 REASON FOR CONSULTATION Respiratory insufficiency with COPD. HISTORY OF PRESENT ILLNESS This is a 51-year-old white male, extremely overweight, with a history of recurrent bronchitis, has been admitted with progressive shortness of breath, wheezing and cough. The patient apparently picked up bronchitis from his daughter who was sick for three days with a respiratory infection. 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 He was wheezing upon arrival in the emergency room and a chest x-ray that was done showed increased interstitial markings and lower lung volumes. The patient was started on IV antibiotics and nebulized DuoNeb solution and oral prednisone. He was also placed on oxygen at 2 liters since his O2 sats were low. The patient has had previous CAT scans which showed no significant evidence of infiltrates or nodules. He has had cardiac evaluations done in the past but he does have a history of diabetes mellitus type 2 and hypertension and hyperlipidemia. Denies history of sleep apnea but he does snore. PAST HISTORY 1. Hypertension. 2. Hyperlipidemia. 3. Diabetes mellitus type 2. 4. He was told that he has COPD. 5. Also had eye surgery on the left. ALLERGIES None listed. HABITS The patient smoked one-pack per day for over 35 years. No significant alcohol use. 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 No history of asbestos exposure. FAMILY HISTORY Father had a history of heart disease. There is a history of breast cancer in his mother. SYSTEMS REVIEW The patient has had weight gain, leg swelling. He has postnasal drip, cough, wheezing, orthopnea, epigastric distress and reflux. He has urinary frequency and flank pains. He has joint pains of his extremities and no skin lesions. PHYSICAL EXAMINATION GENERAL: This is an extremely overweight middle-aged white male who is alert, in no acute distress. His face was plethoric. He has mild peripheral edema. No lymphadenopathy. VITAL SIGNS: Blood pressure is 140/80, pulse is 96, respirations 20, temperature 98.2. HEENT: Head normocephalic. Pupils are reactive. Tongue is moist. Nasal mucosa edematous. Throat is injected. NECK: Supple. No bruits or thyroid enlargement. CHEST: Equal movements with percussion note, resonant throughout. Decreased breath sounds at the bases. Wheezes are scattered bilaterally, prolonged expirations with a few crackles at the right base. HEART: The heart sounds are regular, S1-S2. No murmur. No S3. ABDOMEN: Soft, protuberant. No mass, no organomegaly or tenderness. Bowel sounds are active. EXTREMITIES: No lesions with mild edema. No calf tenderness. NEUROLOGICAL EXAMINATION: Reflexes are 1+. No gross motor deficits. Cranial nerves are grossly intact. RECTAL: Exam is deferred. IMPRESSION 1. Asthmatic bronchitis. 1. Chronic obstructive lung disease with chronic bronchitis. 2. Diabetes mellitus type 2 3. Hypertension. 4. 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 5. Exogenous obesity. PLAN 1. The patient was advised about staying away from cigarettes and also advised about a weight loss program. 2. He will be maintained on Zithromax 500 mg IV daily and Rocephin 1 gram IV daily was added. 3. We will get a CT scan of the chest without contrast and a pulmonary function study will be done with bronchodilators. 4. The patient will be maintained on DuoNeb solution via nebulizer every 4 hours and Solu-Medrol added 40 mg IV every 8 hours and prednisone placed on hold. 5. We are awaiting the blood studies including ELDON, RA factor and CRP. 6. A sleep study will be arranged when he is discharged. 7. The patient will be maintained on 2 liters of oxygen and a blood gas study will be obtained. 8. Symbicort 160/4.5 mcg 2 puffs twice daily was added as well for his wheezing. 9. Hopefully wean him off the oxygen over the next 24-[address] Ca for this consultation. Jaspreet Jaramillo MD JVD/NITA /11:58 PM /5:08 AM
[2017-01-27] MEDS: guaiFENesin SOLUTION 200 MG/10 ML CUP PO PRN ×2 (05:32→08:33)
[2017-01-27] MEDS: cefTRIAXone INJ 1,000 MG in SODIUM CHLORIDE 0.9% INJ 100 ML IV SCH (05:32)
[2017-01-27] MEDS: methylPREDNISolone SOD SUCC 40 MG/1 ML VIAL IV PUSH SCH ×3 (05:32→21:11)
[2017-01-27] MEDS: INSULIN ASPART SUPPLEMENTAL SCALE SQ SCH ×4 (05:38→21:00)
[2017-01-27] MEDS: RESP: ALBUTEROL 2.5 MG/IPRATROPIUM 0.5 MG NEB (SCH) NEB ×3 (07:55→19:42)
[2017-01-27] MEDS: AZITHROMYCIN 250 MG TAB PO SCH (08:33)
[2017-01-27] MEDS: SODIUM CHLORIDE 0.9% FLUSH 10 ML FLUSH IV FLUSH SCH ×2 (09:00→21:00)
[2017-01-27] MEDS: BUDESONIDE-FORMOTEROL 160/4.5 MCG INHALER INH SCH ×2 (10:13→21:00)
--- NOTE | 2017-01-27 10:29 | HHI.PR ---
Subjective Remarks Patient does not feel improved today compared to yesterday. He still reports frequent coughing, wheezing, and paroxysmal nocturnal dyspnea. Objective Vital Signs Date Time Temp Pulse Resp B/P (MAP) Pulse Ox O2 Delivery O2 Flow Rate FiO2 01/27/17 08:46 96.8 75 20 142/85 (104) 97 01/27/17 07:56 93 Nasal Cannula 2.00 01/27/17 04:00 97.5 74 22 131/71 (91) 96 01/27/17 00:00 97.1 66 22 109/70 (83) 100 01/26/17 20:01 94 Nasal Cannula 2.00 01/26/17 20:00 97.9 66 22 131/63 (85) 95 01/26/17 16:31 98.1 100 16 130/62 (84) 94 I/O 01/26/17 01/26/17 01/26/17 01/27/17 01/27/17 01/27/17 07:00 15:00 23:00 07:00 15:00 23:00 Intake Total 100 ml Balance 100 ml Intake IV Total 100 ml Result Diagram: 01/26/1751901/26/17519 Objective Remarks GENERAL: NAD, A&Ox3, obese HEAD: Normocephalic. NECK: Supple, trachea midline. No lymphadenopathy. EYES: No scleral icterus. No injection or drainage. CARDIOVASCULAR: Regular rate and rhythm without murmurs, gallops, or rubs. RESPIRATORY: Breath sounds equal bilaterally. No accessory muscle use. Bilateral wheezing. GASTROINTESTINAL: Abdomen soft, non-tender, nondistended. MUSCULOSKELETAL: No cyanosis, or edema. SKIN: Warm and dry. NEURO: No focal neurological deficitis. A/P Problem List: (1) Type 2 diabetes mellitus ICD Code: E11.9 - Type 2 diabetes mellitus without complications Status: Acute (2) Hypertension ICD Code: I10 - Hypertension Status: Acute (3) Edema ICD Code: R60.9 - Edema Status: Acute (4) Cough ICD Code: R05 - Cough Status: Acute (5) Dyspnea ICD Code: R06.00 - Dyspnea Status: Acute (6) Acute respiratory distress ICD Code: R06.00 - Dyspnea, unspecified Assessment and Plan Assessment and plan 51-year-old male admitted secondary to respiratory distress and acute dyspnea. Acute respiratory distress Acute dyspnea History of pulmonary nodularity No improvement Continue oxygen supplements as needed Schedule duo nebs When necessary albuterol Azithromycin Rocephin Symbicort Systemic steroids Follow for improvement in respiratory status Pulmonology following. CT of chest pending Echo pending ELDON pending Rheumatoid factor is negative CRP and ESR are elevated Lower extremity edema Obtain echocardiogram to evaluate for cardiomyopathy Diabetes mellitus type 2 Follow blood sugars Insulin sliding scale Diabetic diet Hyperlipidemia Obesity No change to baseline treatment Dietary changes recommended (increased fiber) Follow as an outpatient Hypertension Follow blood pressures Continue lisinopril DVT prophylaxis Kennyx Marcell Ca MD Jan 27, 2017 10:29
[2017-01-27] MEDS: ACETAMINOPHEN/HYDROcodone 325 MG/5 MG TAB PO PRN ×3 (10:45→21:11)
[2017-01-27] MEDS: guaiFENesin/CODEINE SYRUP 200 MG/20 MG/10 ML CUP PO PRN ×2 (10:45→16:42)
--- NOTE | 2017-01-27 12:23 | ECHRPT ---
Indication: EF assesment of CHF CONCLUSIONS Normal left ventricular size. Mildly dilated left ventricle. Mild concentric left ventricular hypertrophy. Doppler parameters are consistent with impaired left ventricular relaxtion (grade 1 diastolic dysfun ction). The right ventricle is mildly dilated. The left atrial size is mildly dilated. The right atrial size is [id number] dilated. The interatrial septum not well visualized. The aortic root and proximal ascending aorta are not well visualized. Trace mitral valve regurgitation. Aortic valve sclerosis is present. No aortic valve regurgitation. No aortic valve stenosis. There is mild tricuspid valve regurgitation. Normal estimated pulmonary pressures. The inferior vena cava (IVC) is normal in size. There is greater than 50% respiratory change in dimension of the inferior vena cava (normal). BP: 131 / 71 HR: 74 Rhythm: Sinus MEASUREMENTS (Male / Female) Normal Values Technical Quality:Very technically difficult study 2D ECHO LV Diastolic Diameter PLAX 5.8 cm 4.2 - 5.9 / 3.9 - 5.3 cm LV Systolic Diameter PLAX 4.3 cm IVS Diastolic Thickness 1.0 cm 0.6 - 1.0 / 0.6 - 0.9 cm LVPW Diastolic Thickness 1.1 cm 0.6 - 1.0 / 0.6 - 0.9 cm LV Relative Wall Thickness 0.4 LVOT Diameter 2.2 cm Aortic Root Diameter 2.9 cm LA Systolic Diameter LX 4.0 cm 3.0 - 4.0 / 2.7 - 3.8 cm M-MODE AV Cusp Separation MM 2.2 cm DOPPLER AV Peak Velocity 149.0 cm/s AV Peak Gradient 8.9 mmHg AV Mean Gradient 5.0 mmHg AV Velocity Time Integral 27.9 cm LVOT Peak Velocity 114.0 cm/s LVOT Peak Gradient 5.2 mmHg LVOT Velocity Time Integral 18.6 cm LVOT Cardiac Index 1746.5 cm/minm AV Area Cont Eq vti 2.5 cm AV Area Cont Eq pk 2.9 cm Mitral E Point Velocity 87.7 cm/s Mitral A Point Velocity 109.0 cm/s Mitral E to A Ratio 0.8 LV E' Lateral Velocity 12.7 cm/s Mitral E to LV E' Lateral Ratio 6.9 LV E' Septal Velocity 9.0 cm/s Mitral E to LV E' Septal Ratio 9.8 TR Peak Velocity 239.0 cm/s TR Peak Gradient 22.8 mmHg PV Peak Velocity 98.6 cm/s PV Peak Gradient 3.9 mmHg FINDINGS LEFT VENTRICLE Normal left ventricular size. Mildly dilated left ventricle. Mild concentric left ventricular hypertrophy. The left ventricular systolic function is normal with an estimated ejection fraction in the range of 60-65%. Doppler parameters are consistent with impaired left ventricular relaxtion (grade 1 diastolic dysfun ction). RIGHT VENTRICLE The right ventricle is mildly dilated. LEFT ATRIUM The left atrial size is mildly dilated. RIGHT ATRIUM The right atrial size is svhj-hn-cozkripgfg dilated. ATRIAL SEPTUM The interatrial septum not well visualized. AORTA The aortic root and proximal ascending aorta are not well visualized. MITRAL VALVE Structurally normal mitral valve. Trace mitral valve regurgitation. AORTIC VALVE Aortic valve sclerosis is present. No aortic valve regurgitation. No aortic valve stenosis. TRICUSPID VALVE Structurally normal tricuspid valve. There is mild tricuspid valve regurgitation. Normal estimated pulmonary pressures. PULMONARY VALVE No pulmonary valve regurgitation or stenosis. VESSELS The inferior vena cava (IVC) is normal in size. There is greater than 50% respiratory change in dimension of the inferior vena cava (normal). Esdras Neumann MD (Electronically Signed) Final Date:27 January 2017 12:22
[2017-01-27] MEDS: ENOXAPARIN SODIUM 40 MG/0.4 ML SYRINGE SQ SCH (16:29)
[2017-01-27] MEDS: SODIUM CHLOR 0.45% 1000 ML INJ 1,000 ML IV SCH (16:39)
--- NOTE | 2017-01-27 16:46 | HHI.PR ---
Subjective Remarks Cough is less .no Fever. Less wheezing. On O2 at 2L. CT chest shows no nodules or infiltrate.Pleural thickening noted Objective Vital Signs Date Time Temp Pulse Resp B/P (MAP) Pulse Ox O2 Delivery O2 Flow Rate FiO2 01/27/17 15:48 01/27/17 13:34 98.8 75 16 157/85 (109) 94 01/27/17 11:45 20 01/27/17 08:46 96.8 75 20 142/85 (104) 97 01/27/17 07:56 93 Nasal Cannula 2.00 01/27/17 04:00 97.5 74 22 131/71 (91) 96 01/27/17 00:00 97.1 66 22 109/70 (83) 100 01/26/17 20:01 94 Nasal Cannula 2.00 01/26/17 20:00 97.9 66 22 131/63 (85) 95 I/O 01/26/17 01/26/17 01/26/17 01/27/17 01/27/17 01/27/17 07:00 15:00 23:00 07:00 15:00 23:00 Intake Total 100 ml Balance 100 ml Intake IV Total 100 ml Result Diagram: 01/26/1751901/26/17519 Objective Remarks PHYSICAL EXAMINATION GENERAL: This is an extremely overweight middle-aged white male who is alert, in no acute distress. His face was plethoric. He has mild peripheral edema. No lymphadenopathy. HEENT: Head normocephalic. Pupils are reactive. Tongue is moist. Nasal mucosa edematous. Throat is injected. NECK: Supple. No bruits or thyroid enlargement. CHEST: Equal movements with percussion note, resonant throughout. Decreased breath sounds at the bases. Wheezes are scattered bilaterally, prolonged expirations . HEART: The heart sounds are regular, S1-S2. No murmur. No S3. ABDOMEN: Soft, protuberant. No mass, no organomegaly or tenderness. Bowel sounds are active. EXTREMITIES: No lesions with mild edema. No calf tenderness. NEUROLOGICAL EXAMINATION: Reflexes are 1+. No gross motor deficits. Cranial nerves are grossly intact. RECTAL: Exam is deferred. Assessment and Plan Assessment and Plan IMPRESSION 1. Asthmatic bronchitis. 1. Chronic obstructive lung disease with chronic bronchitis. 2. Diabetes mellitus type 2 3. Hypertension. 4. 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 5. Exogenous obesity. Plan : 1. Continue antibiotics. 2. O2 at 2L. 3. Solumedrol 40 mg IV q8h.and taper over 3 days. 4. Will get PFT with Bronchodilator 5. Duonebs qid . 6. Symbicort 160/4.5 Mcg, 2 puffs bid. 7. BMP in am Danny Jaramillo MD Jan 27, 2017 16:46
[2017-01-28] VITALS (8 sets, daily range): BP systolic 139–163; BP diastolic 83–96; PULSE 57–94; RESP 18–21; TEMP 97.4–99.1; O2SAT 91–97
[2017-01-28] MEDS: ACETAMINOPHEN/HYDROcodone 325 MG/5 MG TAB PO PRN ×3 (01:00→22:03)
[2017-01-28] MEDS: guaiFENesin/CODEINE SYRUP 200 MG/20 MG/10 ML CUP PO PRN ×3 (04:09→22:05)
[2017-01-28] MEDS: cefTRIAXone INJ 1,000 MG in SODIUM CHLORIDE 0.9% INJ 100 ML IV SCH (06:28)
[2017-01-28] MEDS: methylPREDNISolone SOD SUCC 40 MG/1 ML VIAL IV PUSH SCH ×3 (06:28→22:03)
[2017-01-28] MEDS: RESP: ALBUTEROL 2.5 MG/IPRATROPIUM 0.5 MG NEB (SCH) NEB ×3 (07:40→19:30)
[2017-01-28] MEDS: BUDESONIDE-FORMOTEROL 160/4.5 MCG INHALER INH SCH ×2 (09:06→22:02)
[2017-01-28] MEDS: SODIUM CHLORIDE 0.9% FLUSH 10 ML FLUSH IV FLUSH SCH ×2 (09:06→22:05)
[2017-01-28] MEDS: AZITHROMYCIN 250 MG TAB PO SCH (09:06)
[2017-01-28] MEDS: INSULIN ASPART SUPPLEMENTAL SCALE SQ SCH ×4 (09:13→22:10)
--- NOTE | 2017-01-28 11:41 | HHI.PR ---
Subjective Remarks CT shows evidence of pneumonitis. No evidence of pulmonary fibrosis. Echocardiogram shows an ejection fraction of 60-65% without pathology that would be enough to be considered the primary cause of this patient's lower extremity edema respiratory symptoms. Patient's condition has improved slightly but he still not functional, still cannot lay flat in bed, still not tolerant of any exertion. Objective Vital Signs Date Time Temp Pulse Resp B/P (MAP) Pulse Ox O2 Delivery O2 Flow Rate FiO2 01/28/17 08:00 97.4 71 21 144/84 (104) 92 01/28/17 07:42 97 Nasal Cannula 1.00 01/28/17 04:00 97.5 57 20 150/84 (106) 96 01/28/17 00:00 98.3 60 20 139/90 (106) 95 01/27/17 20:00 96.2 76 20 146/78 (100) 97 01/27/17 19:44 91 21 01/27/17 18:55 96.3 67 18 01/27/17 17:44 17 01/27/17 17:21 98.4 74 16 122/67 (85) 95 01/27/17 15:48 01/27/17 13:34 98.8 75 16 157/85 (109) 94 I/O 01/27/17 01/27/17 01/27/17 01/28/17 01/28/17 01/28/17 06:59 14:59 22:59 06:59 14:59 22:59 Intake Total 1880 ml 580 ml Balance 1880 ml 580 ml Intake Oral 1880 ml 580 ml # Voids 12 2 # Bowel Movements 1 0 Result Diagram: 01/26/1751901/26/17519 Objective Remarks GENERAL: NAD, A&Ox3, obese HEAD: Normocephalic. NECK: Supple, trachea midline. No lymphadenopathy. EYES: No scleral icterus. No injection or drainage. CARDIOVASCULAR: Regular rate and rhythm without murmurs, gallops, or rubs. RESPIRATORY: Breath sounds equal bilaterally. No accessory muscle use. Bilateral wheezing. GASTROINTESTINAL: Abdomen soft, non-tender, nondistended. MUSCULOSKELETAL: No cyanosis, or edema. SKIN: Warm and dry. NEURO: No focal neurological deficitis. A/P Problem List: (1) Type 2 diabetes mellitus ICD Code: E11.9 - Type 2 diabetes mellitus without complications Status: Acute (2) Hypertension ICD Code: I10 - Hypertension Status: Acute (3) Edema ICD Code: R60.9 - Edema Status: Acute (4) Cough ICD Code: R05 - Cough Status: Acute (5) Dyspnea ICD Code: R06.00 - Dyspnea Status: Acute (6) Acute respiratory distress ICD Code: R06.00 - Dyspnea, unspecified Assessment and Plan Assessment and plan 51-year-old male admitted secondary to respiratory distress and acute dyspnea. Pneumonitis and CT. Echocardiogram shows ejection fraction of 60-65%. Acute respiratory distress Acute dyspnea History of pulmonary nodularity No improvement Continue oxygen supplements as needed Schedule duo nebs When necessary albuterol Azithromycin Rocephin Symbicort Systemic steroids Follow for improvement in respiratory status Pulmonology following. CT of chest shows no pulmonary fibrosis. Pneumonitis is present. Echo shows ejection fraction of 60-65% ELDON pending Rheumatoid factor is negative CRP and ESR are elevated Lower extremity edema Obtain echocardiogram to evaluate for cardiomyopathy Diabetes mellitus type 2 Follow blood sugars Insulin sliding scale Diabetic diet Hyperlipidemia Obesity No change to baseline treatment Dietary changes recommended (increased fiber) Follow as an outpatient Hypertension Follow blood pressures Continue lisinopril DVT prophylaxis Lovejenaex Marcell Ca MD Jan 28, 2017 11:41
[2017-01-28] MEDS: SODIUM CHLOR 0.45% 1000 ML INJ 1,000 ML IV SCH (16:15)
[2017-01-28] MEDS: ENOXAPARIN SODIUM 40 MG/0.4 ML SYRINGE SQ SCH (16:16)
[2017-01-29] VITALS (9 sets, daily range): BP systolic 141–171; BP diastolic 78–90; PULSE 63–79; RESP 18–22; TEMP 95.7–98.1; O2SAT 88–98
[2017-01-29] MEDS: cefTRIAXone INJ 1,000 MG in SODIUM CHLORIDE 0.9% INJ 100 ML IV SCH (05:57)
[2017-01-29] MEDS: guaiFENesin/CODEINE SYRUP 200 MG/20 MG/10 ML CUP PO PRN ×3 (05:58→20:46)
[2017-01-29] MEDS: ACETAMINOPHEN/HYDROcodone 325 MG/5 MG TAB PO PRN ×3 (05:58→20:46)
[2017-01-29] MEDS: methylPREDNISolone SOD SUCC 40 MG/1 ML VIAL IV PUSH SCH ×3 (05:58→20:46)
[2017-01-29] MEDS: INSULIN ASPART SUPPLEMENTAL SCALE SQ SCH ×4 (06:12→20:44)
[2017-01-29] MEDS: RESP: ALBUTEROL 2.5 MG/IPRATROPIUM 0.5 MG NEB (SCH) NEB ×3 (07:15→19:21)
[2017-01-29] MEDS: SODIUM CHLORIDE 0.9% FLUSH 10 ML FLUSH IV FLUSH SCH ×2 (09:00→20:43)
[2017-01-29] MEDS: BUDESONIDE-FORMOTEROL 160/4.5 MCG INHALER INH SCH ×2 (09:06→20:42)
[2017-01-29] MEDS: AZITHROMYCIN 250 MG TAB PO SCH (09:07)
--- NOTE | 2017-01-29 11:48 | HHI.PR ---
Subjective Remarks CT shows evidence of pneumonitis. No evidence of pulmonary fibrosis. Echocardiogram shows an ejection fraction of 60-65% without pathology that would be enough to be considered the primary cause of this patient's lower extremity edema respiratory symptoms. Complaint today of nasal congestion. [place] requested. Respiratory status is improving slowly. Patient does not yet to a functional baseline. He is not tolerating ambulation well yet. Objective Vital Signs Date Time Temp Pulse Resp B/P (MAP) Pulse Ox O2 Delivery O2 Flow Rate FiO2 01/29/17 08:00 95.7 69 22 154/90 (111) 93 01/29/17 07:15 97 Nasal Cannula 2.00 01/29/17 04:00 96.1 63 18 143/84 (103) 95 01/29/17 00:00 96.3 71 18 152/81 (104) 97 01/28/17 20:00 94 01/28/17 20:00 97.8 66 18 150/83 (105) 94 01/28/17 19:32 92 21 01/28/17 16:00 99.1 65 20 158/96 (116) 91 01/28/17 12:00 97.6 74 20 163/83 (109) 95 I/O 01/28/17 01/28/17 01/28/17 01/29/17 01/29/17 01/29/17 06:59 14:59 22:59 06:59 14:59 22:59 Intake Total 580 ml 630 ml 120 ml Balance 580 ml 630 ml 120 ml Intake Oral 580 ml 630 ml 120 ml # Voids 2 4 4 # Bowel Movements 0 1 1 Result Diagram: 01/26/1751901/26/17519 Objective Remarks GENERAL: NAD, A&Ox3, obese HEAD: Normocephalic. NECK: Supple, trachea midline. No lymphadenopathy. EYES: No scleral icterus. No injection or drainage. CARDIOVASCULAR: Regular rate and rhythm without murmurs, gallops, or rubs. RESPIRATORY: Breath sounds equal bilaterally. No accessory muscle use. Bilateral wheezing. GASTROINTESTINAL: Abdomen soft, non-tender, nondistended. MUSCULOSKELETAL: No cyanosis, or edema. SKIN: Warm and dry. NEURO: No focal neurological deficitis. A/P Problem List: (1) Type 2 diabetes mellitus ICD Code: E11.9 - Type 2 diabetes mellitus without complications Status: Acute (2) Hypertension ICD Code: I10 - Hypertension Status: Acute (3) Edema ICD Code: R60.9 - Edema Status: Acute (4) Cough ICD Code: R05 - Cough Status: Acute (5) Dyspnea ICD Code: R06.00 - Dyspnea Status: Acute (6) Acute respiratory distress ICD Code: R06.00 - Dyspnea, unspecified Assessment and Plan Assessment and plan 51-year-old male admitted secondary to respiratory distress and acute dyspnea. Pneumonitis and CT. Echocardiogram shows ejection fraction of 60-65%. Continue systemic steroids, nebulized treatments, oxygen supplementation as needed. Nasal spray added today. Acute respiratory distress Acute dyspnea History of pulmonary nodularity No improvement Continue oxygen supplements as needed Schedule duo nebs When necessary albuterol Azithromycin Rocephin Symbicort Systemic steroids Follow for improvement in respiratory status Pulmonology following. CT of chest shows no pulmonary fibrosis. Pneumonitis is present. Echo shows ejection fraction of 60-65% ELDON pending Rheumatoid factor is negative CRP and ESR are elevated Lower extremity edema Obtain echocardiogram to evaluate for cardiomyopathy Diabetes mellitus type 2 Follow blood sugars Insulin sliding scale Diabetic diet Hyperlipidemia Obesity No change to baseline treatment Dietary changes recommended (increased fiber) Follow as an outpatient Hypertension Follow blood pressures Continue lisinopril DVT prophylaxis Kennyx Marcell Ca MD Jan 29, 2017 11:48
[2017-01-29] MEDS: ENOXAPARIN SODIUM 40 MG/0.4 ML SYRINGE SQ SCH (16:12)
[2017-01-29] MEDS: SODIUM CHLOR 0.45% 1000 ML INJ 1,000 ML IV SCH (17:05)
[2017-01-29] MEDS: SODIUM CHLORIDE 0.65% NASAL SPRAY 45 ML BTL EACH NARE PRN (22:03)
[2017-01-30] VITALS (9 sets, daily range): BP systolic 130–166; BP diastolic 77–99; PULSE 67–92; RESP 16–20; TEMP 96.7–98.3; O2SAT 93–98
[2017-01-30] MEDS: ACETAMINOPHEN/HYDROcodone 325 MG/5 MG TAB PO PRN ×5 (00:47→23:56)
[2017-01-30] MEDS: guaiFENesin/CODEINE SYRUP 200 MG/20 MG/10 ML CUP PO PRN ×5 (00:47→23:56)
[2017-01-30] MEDS: cefTRIAXone INJ 1,000 MG in SODIUM CHLORIDE 0.9% INJ 100 ML IV SCH (04:47)
[2017-01-30] MEDS: methylPREDNISolone SOD SUCC 40 MG/1 ML VIAL IV PUSH SCH (04:47)
[2017-01-30] MEDS: BUDESONIDE-FORMOTEROL 160/4.5 MCG INHALER INH SCH ×2 (08:13→20:38)
[2017-01-30] MEDS: AZITHROMYCIN 250 MG TAB PO SCH (08:13)
[2017-01-30] MEDS: RESP: ALBUTEROL 2.5 MG/IPRATROPIUM 0.5 MG NEB (SCH) NEB (08:15)
[2017-01-30] MEDS: SODIUM CHLORIDE 0.9% FLUSH 10 ML FLUSH IV FLUSH SCH ×2 (09:00→20:18)
[2017-01-30] MEDS: INSULIN ASPART SUPPLEMENTAL SCALE SQ SCH ×4 (09:38→20:33)
[2017-01-30] MEDS: RESP: ALBUTEROL 2.5 MG/3 ML NEB (PRN) NEB ×2 (14:11→19:13)
--- NOTE | 2017-01-30 14:12 | HHI.PR ---
Subjective Remarks Patient states that he is feeling much better since coming into the hospital. Still dyspneic with exertion but ambulating to the bathroom. Has pedal edema but he states his been going on for months. Also having some numbness in the feet. States he's coughing copiously producing white frothy sputum. Objective Vitals Vital Signs Date Time Temp Pulse Resp B/P (MAP) Pulse Ox O2 Delivery O2 Flow Rate FiO2 01/30/17 12:00 97.4 74 20 155/81 (105) 96 01/30/17 08:15 96 Nasal Cannula 2.00 01/30/17 08:00 96.9 67 20 130/77 (94) 95 01/30/17 04:34 98.3 67 18 147/84 (105) 98 01/30/17 01:08 97.1 78 18 146/78 (100) 97 01/29/17 21:12 98.1 79 18 171/80 (110) 98 01/29/17 20:00 75 01/29/17 19:21 88 21 01/29/17 14:53 97 Nasal Cannula 1.00 I/O 01/29/17 01/29/17 01/29/17 01/30/17 01/30/17 01/30/17 07:00 15:00 23:00 07:00 15:00 23:00 Intake Total 120 ml 460 ml 1000 ml 608 ml 100 ml Balance 120 ml 460 ml 1000 ml 608 ml 100 ml Intake Oral 120 ml 360 ml IV Total 100 ml 1000 ml 608 ml 100 ml # Voids 4 3 3 # Bowel Movements 1 0 0 Result Diagram: 01/26/1751901/26/17519 Objective Remarks GENERAL: Well-nourished, well-developed morbidly obese pleasant male patient. SKIN: Warm and dry. HEAD: Normocephalic. EYES: No scleral icterus. No injection or drainage. NECK: Supple, trachea midline. No JVD or lymphadenopathy. CARDIOVASCULAR: Regular rate and rhythm without murmurs, gallops, or rubs. RESPIRATORY: Breath sounds equal bilaterally. Diffuse forced expiratory wheeze. No accessory muscle use. GASTROINTESTINAL: Abdomen soft, non-tender, nondistended. EXTREMITIES: 1+ ankle edema NEUROLOGICAL: Awake, alert, and oriented x 3. Non-focal. A/P Problem List: (1) Type 2 diabetes mellitus ICD Code: E11.9 - Type 2 diabetes mellitus without complications Status: Acute (2) Cough ICD Code: R05 - Cough Status: Acute (3) Acute dyspnea ICD Code: R06.00 - Dyspnea, unspecified (4) Hypertension ICD Code: I10 - Hypertension Status: Acute (5) Neuropathy ICD Code: G62.9 - Neuropathy Status: Acute (6) Viral pneumonitis ICD Code: J12.9 - Viral pneumonia, unspecified (7) COPD with acute exacerbation ICD Code: J44.1 - Chronic obstructive pulmonary disease with (acute) exacerbation Status: Acute Assessment and Plan 51-year-old male admitted secondary to respiratory distress and acute dyspnea. Pneumonitis and CT. Echocardiogram shows ejection fraction of 60-65%. Continue systemic steroids, nebulized treatments, oxygen supplementation as needed. Nasal spray added today. -Acute dyspnea secondary to bilateral pneumonitis, possible COPD exacerbation - improved. CT of chest showed no pulmonary fibrosis. Pneumonitis is present. Change Solu-Medrol to prednisone. DC Rocephin, complete Zithromax. Continue duo nebs. Check oxygen walk test today. Pedal edema, chronic likely dependent compounded by obesity Echo showed ejection fraction of 60-65% Diabetes mellitus type 2 Follow blood sugars Insulin sliding scale Diabetic diet Hyperlipidemia Obesity No change to baseline treatment Dietary changes recommended (increased fiber) Follow as an outpatient Hypertension Follow blood pressures Continue lisinopril DVT prophylaxis Lovenox Discharge Planning Likely discharge home tomorrow. Rosey Rausch MD Jan 30, 2017 14:12
[2017-01-30] MEDS: ENOXAPARIN SODIUM 40 MG/0.4 ML SYRINGE SQ SCH (16:26)
--- NOTE | 2017-01-30 16:53 | HHI.PR ---
Subjective Remarks alert sitting in bed still c/o SOB Objective Vital Signs Date Time Temp Pulse Resp B/P (MAP) Pulse Ox O2 Delivery O2 Flow Rate FiO2 01/30/17 16:00 97.4 92 20 166/99 (121) 96 01/30/17 14:50 2.00 01/30/17 12:00 97.4 74 20 155/81 (105) 96 01/30/17 08:15 96 Nasal Cannula 2.00 01/30/17 08:00 96.9 67 20 130/77 (94) 95 01/30/17 04:34 98.3 67 18 147/84 (105) 98 01/30/17 01:08 97.1 78 18 146/78 (100) 97 01/29/17 21:12 98.1 79 18 171/80 (110) 98 01/29/17 20:00 75 01/29/17 19:21 88 21 I/O 01/29/17 01/29/17 01/29/17 01/30/17 01/30/17 01/30/17 07:00 15:00 23:00 07:00 15:00 23:00 Intake Total 120 ml 460 ml 1000 ml 608 ml 1060 ml Output Total 375 ml Balance 120 ml 460 ml 1000 ml 608 ml 685 ml Intake Oral 120 ml 360 ml 960 ml IV Total 100 ml 1000 ml 608 ml 100 ml Output Urine Total 375 ml # Voids 4 3 3 # Bowel Movements 1 0 0 0 Result Diagram: 01/26/1751901/26/17519 Objective Remarks GENERAL: SKIN: Warm and dry. HEAD: Atraumatic. Normocephalic. EYES: Pupils equal and round. No scleral icterus. No injection or drainage. ENT: No nasal bleeding or discharge. Mucous membranes pink and moist. NECK: Trachea midline. No JVD. CARDIOVASCULAR: Regular rate and rhythm. RESPIRATORY: No accessory muscle use. Clear to auscultation. Breath sounds equal bilaterally. GASTROINTESTINAL: Abdomen soft, non-tender, nondistended. Hepatic and splenic margins not palpable. MUSCULOSKELETAL: Extremities without clubbing, cyanosis, or edema. No obvious deformities. NEUROLOGICAL: Awake and alert. No obvious cranial nerve deficits. Motor grossly within normal limits. Five out of 5 muscle strength in the arms and legs. Normal speech. PSYCHIATRIC: Appropriate mood and affect; insight and judgment normal. Assessment and Plan Assessment and Plan COPD EX OBESITY ? santhosh plan o2 as needed bronchodilator therapy increase activity Elda Schroeder MD Jan 30, 2017 16:53
[2017-01-30] MEDS: SODIUM CHLOR 0.45% 1000 ML INJ 1,000 ML IV SCH (18:58)
[2017-01-30] MEDS: predniSONE 20 MG TAB PO SCH (20:16)
[2017-01-31] VITALS (10 sets, daily range): BP systolic 127–151; BP diastolic 73–97; PULSE 77–85; RESP 16–22; TEMP 96.8–98.7; O2SAT 91–98
[2017-01-31] MEDS: guaiFENesin/CODEINE SYRUP 200 MG/20 MG/10 ML CUP PO PRN ×4 (05:32→22:05)
[2017-01-31] MEDS: INSULIN ASPART SUPPLEMENTAL SCALE SQ SCH ×4 (05:33→21:45)
[2017-01-31] MEDS: ACETAMINOPHEN/HYDROcodone 325 MG/5 MG TAB PO PRN ×2 (05:33→09:31)
[2017-01-31] MEDS: RESP: ALBUTEROL 2.5 MG/3 ML NEB (PRN) NEB ×2 (05:38→21:48)
[2017-01-31] MEDS: SODIUM CHLORIDE 0.9% FLUSH 10 ML FLUSH IV FLUSH SCH ×2 (09:00→21:45)
[2017-01-31] MEDS: BUDESONIDE-FORMOTEROL 160/4.5 MCG INHALER INH SCH ×2 (09:16→21:59)
[2017-01-31] MEDS: AZITHROMYCIN 250 MG TAB PO SCH (09:16)
[2017-01-31] MEDS: predniSONE 20 MG TAB PO SCH ×2 (09:16→21:45)
--- NOTE | 2017-01-31 12:01 | HHI.PR ---
Subjective Remarks Patient reports that he still short of breath. Having coughing spells. Still requiring oxygen. He does not have electricity at his house currently. Objective Vitals Vital Signs Date Time Temp Pulse Resp B/P (MAP) Pulse Ox O2 Delivery O2 Flow Rate FiO2 01/31/17 10:33 19 01/31/17 09:28 96.8 78 18 129/97 (108) 97 01/31/17 05:38 95 Nasal Cannula 2.00 01/31/17 04:14 97.6 79 16 147/87 (107) 98 01/31/17 01:16 97.0 80 18 151/80 (103) 97 01/30/17 21:55 96.7 72 16 147/82 (103) 98 01/30/17 20:00 79 01/30/17 19:14 93 21 01/30/17 16:00 97.4 92 20 166/99 (121) 96 01/30/17 14:50 2.00 I/O 01/30/17 01/30/17 01/30/17 01/31/17 01/31/17 01/31/17 07:00 15:00 23:00 07:00 15:00 23:00 Intake Total 608 ml 1060 ml 442 ml Output Total 375 ml Balance 608 ml 685 ml 442 ml Intake Oral 960 ml IV Total 608 ml 100 ml 442 ml Output Urine Total 375 ml # Voids 3 2 # Bowel Movements 0 0 Imaging Last Impressions Chest CT 01/26/17 1930 Signed Impressions: Service Date/Time: January 20:54 - CONCLUSION: 1. Benign-appearing pleural thickening with subjacent stranding laterally in the right midchest is nonspecific and may represent a mild pneumonitis. No confluent infiltrate. 2. Prominent pretracheal lymph nodes in the mediastinum all contain fatty cara and are likely reactive. Zev Ceballos MD Chest X-Ray 01/26/17 [id number] Signed Impressions: Service Date/Time: January 04:42 - CONCLUSION: 1. No acute cardiopulmonary disease. Imtiaz Red MD Objective Remarks GENERAL: This is a well-nourished, well-developed patient, in no apparent distress. CARDIOVASCULAR: Normal rate and regular rhythm without murmurs, gallops, or rubs. RESPIRATORY: Good respiratory efforts. Coughing spells. Diffuse expiratory wheezing. GASTROINTESTINAL: Abdomen soft, non-tender, non-distended. Normal active bowel sounds MUSCULOSKELETAL: Extremities without cyanosis, or edema. NEURO: Alert & Oriented x4 to person, place, time, situation. Moves all ext x4 PSYCH: Appropriate mood and affect. A/P Problem List: (1) Type 2 diabetes mellitus ICD Code: E11.9 - Type 2 diabetes mellitus without complications Status: Acute (2) Cough ICD Code: R05 - Cough Status: Acute (3) Acute dyspnea ICD Code: R06.00 - Dyspnea, unspecified (4) Hypertension ICD Code: I10 - Hypertension Status: Acute (5) Neuropathy ICD Code: G62.9 - Neuropathy Status: Acute (6) Viral pneumonitis ICD Code: J12.9 - Viral pneumonia, unspecified (7) COPD with acute exacerbation ICD Code: J44.1 - Chronic obstructive pulmonary disease with (acute) exacerbation Status: Acute Assessment and Plan 51-year-old male admitted secondary to respiratory distress and acute dyspnea. Pneumonitis on CT. Echocardiogram shows ejection fraction of 60-65%. -Acute dyspnea secondary to bilateral pneumonitis, possible COPD exacerbation - improved. However patient failed home oxygen walk test. Does not have insurance for oxygen. CT of chest showed no pulmonary fibrosis. Pneumonitis is present. Continue prednisone. Antibiotics previously discontinued Continue duo nebs. Incentive spirometry. Pedal edema, chronic likely dependent compounded by obesity Echo showed ejection fraction of 60-65% Diabetes mellitus type 2 Follow blood sugars Insulin sliding scale Diabetic diet Hyperlipidemia Obesity No change to baseline treatment Dietary changes recommended (increased fiber) Follow as an outpatient Hypertension Follow blood pressures Continue lisinopril DVT prophylaxis Lovenox Discharge Planning Patient could be discharged home with oxygen. However he does not have insurance. In addition, he does not have electricity at his house currently. Continue pulmonary rehabilitation efforts here. Incentive spirometry. Wean off oxygen as tolerated. Pal Lane MD Jan 31, 2017 12:01
[2017-01-31] MEDS: ENOXAPARIN SODIUM 40 MG/0.4 ML SYRINGE SQ SCH (16:44)
[2017-01-31] MEDS: oxyCODONE/ACETAMINOPHEN 5 MG/325 MG TAB PO PRN ×2 (16:44→22:05)
[2017-01-31] MEDS: SODIUM CHLOR 0.45% 1000 ML INJ 1,000 ML IV SCH (17:48)
--- NOTE | 2017-01-31 18:36 | HHI.PR ---
Subjective Remarks Feels OK and walking in halls. Less wheezing. On O2 at 2L.Needs Home o2 and a Sleep study CT chest shows no nodules or infiltrate.Pleural thickening noted Objective Vital Signs Date Time Temp Pulse Resp B/P (MAP) Pulse Ox O2 Delivery O2 Flow Rate FiO2 01/31/17 17:53 19 01/31/17 17:32 97.9 77 22 127/84 (98) 98 01/31/17 15:45 96 Nasal Cannula 2.00 01/31/17 12:30 97.7 81 22 136/73 (94) 91 01/31/17 10:33 19 01/31/17 09:28 96.8 78 18 129/97 (108) 97 01/31/17 05:38 95 Nasal Cannula 2.00 01/31/17 04:14 97.6 79 16 147/87 (107) 98 01/31/17 01:16 97.0 80 18 151/80 (103) 97 01/30/17 21:55 96.7 72 16 147/82 (103) 98 01/30/17 20:00 79 01/30/17 19:14 93 21 I/O 01/30/17 01/30/17 01/30/17 01/31/17 01/31/17 01/31/17 07:00 15:00 23:00 07:00 15:00 23:00 Intake Total 608 ml 1060 ml 442 ml 532 ml Output Total 375 ml Balance 608 ml 685 ml 442 ml 532 ml Intake Oral 960 ml IV Total 608 ml 100 ml 442 ml 532 ml Output Urine Total 375 ml # Voids 3 2 5 # Bowel Movements 0 0 Objective Remarks PHYSICAL EXAMINATION GENERAL: This is an extremely overweight middle-aged white male who is alert, in no acute distress. His face was plethoric. He has mild peripheral edema. No lymphadenopathy. HEENT: Head normocephalic. Pupils are reactive. Tongue is moist. Nasal mucosa edematous. Throat is injected. NECK: Supple. No bruits or thyroid enlargement. CHEST: Equal movements with percussion note, resonant throughout. Decreased breath sounds at the bases. Occ Wheezes are scattered bilaterally, prolonged expirations . HEART: The heart sounds are regular, S1-S2. No murmur. No S3. ABDOMEN: Soft, protuberant. No mass, no organomegaly or tenderness. Bowel sounds are active. EXTREMITIES: No lesions with mild edema. No calf tenderness. NEUROLOGICAL EXAMINATION: Reflexes are 1+. No gross motor deficits. Cranial nerves are grossly intact. RECTAL: Exam is deferred. Assessment and Plan Assessment and Plan IMPRESSION 1. Asthmatic bronchitis. 1. Chronic obstructive lung disease with chronic bronchitis. 2. Diabetes mellitus type 2 3. Hypertension. 4. 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 5. Exogenous obesity. Plan : 1. Continue antibiotics. and add Ceftin 500 mg bid X 7 days 2. O2 at 2L. 3. D/C Zithromax 4. Cont Prednisone 20 mg BID daily and taper 5. Duonebs qid . 6. Symbicort 160/4.5 Mcg, 2 puffs bid. 7.Home with O2 at 2 l. 8. Will See As needed Danny Jaramillo MD Jan 31, 2017 18:36
[2017-01-31] MEDS: CEFUROXIME AXETIL 500 MG TAB PO SCH (21:45)
[2017-01-31] MEDS: SODIUM CHLORIDE 0.65% NASAL SPRAY 45 ML BTL EACH NARE PRN (21:58)
[2017-02-01] VITALS: BP 123/92; PULSE 83; RESP 20; TEMP 97.8; O2SAT 92
[2017-02-01 04:00] VITALS: BP 139/74; PULSE 71; RESP 20; TEMP 98.1; O2SAT 98
[2017-02-01] MEDS: oxyCODONE/ACETAMINOPHEN 5 MG/325 MG TAB PO PRN (04:35)
[2017-02-01] MEDS: guaiFENesin/CODEINE SYRUP 200 MG/20 MG/10 ML CUP PO PRN (04:35)
[2017-02-01] MEDS: predniSONE 20 MG TAB PO SCH (08:21)
[2017-02-01] MEDS: SODIUM CHLORIDE 0.9% FLUSH 10 ML FLUSH IV FLUSH SCH (08:22)
[2017-02-01] MEDS: CEFUROXIME AXETIL 500 MG TAB PO SCH (08:22)
[2017-02-01] MEDS: BUDESONIDE-FORMOTEROL 160/4.5 MCG INHALER INH SCH (08:23)
[2017-02-01] MEDS: INSULIN ASPART SUPPLEMENTAL SCALE SQ SCH ×2 (08:24→11:49)
[2017-02-01 08:30] VITALS: O2SAT 96
[2017-02-01 08:41] VITALS: BP 135/82; PULSE 77; RESP 18; TEMP 96.9; O2SAT 100
[2017-02-01 12:00] VITALS: BP 143/90; PULSE 89; RESP 18; TEMP 98.2; O2SAT 94
[2017-02-01] MEDS ORDERED: SYMB160A INH (13:14)
[2017-02-01] MEDS ORDERED: PRED20 PO (13:15)
[2017-02-01] MEDS ORDERED: INSU1MIS15 (13:27)
[2017-02-01] MEDS ORDERED: LANCETS1 MI1 (13:27)
[2017-02-01] MEDS ORDERED: GLUCKIT15 (13:27)
[2017-02-01] MEDS ORDERED: GLUCTES12 (13:27)
[2017-02-01] MEDS ORDERED: guaiFEN-COD 200-20 MG/10ML LIQ PO (13:27)
[2017-02-01] MEDS ORDERED: NOVOLOGP2 SQ (13:27)
[2017-02-01] MEDS ORDERED: CEFU1TAB20 PO (13:27)
--- NOTE | 2017-02-01 13:29 | HHI.DCPOC ---
Discharge Care Plan Diagnosis: (1) Diabetes mellitus with hyperglycemia (2) Viral pneumonitis (3) COPD with acute exacerbation (4) Cough (5) Acute respiratory distress (6) Type 2 diabetes mellitus (7) Hypertension Goals to Promote Your Health * To prevent worsening of your condition and complications * To maintain your health at the optimal level Directions to Meet Your Goals Take your medications as prescribed Follow your dietary instruction Follow activity as directed Keep your appointments as scheduled Take your immunizations and boosters as scheduled If your symptoms worsen call your PCP, if no PCP go to Urgent Care Center or Emergency Room Smoking is Dangerous to Your Health. Avoid second hand smoke Call the 24-hour hour crisis hotline for domestic abuse at Jose Maddox MD Feb 01, 2017 13:29
--- NOTE | 2017-02-01 13:33 | HHI.DS ---
Discharge Summary Admission Date Jan 26, 2017 at 06:36 Discharge Date: Feb 01, 2017 Admitting Diagnosis acute exacerbation COPD (1) Cough ICD Code: R05 - Cough Diagnosis: Principal Status: Acute (2) Acute dyspnea ICD Code: R06.00 - Dyspnea, unspecified Diagnosis: Principal (3) Hypertension ICD Code: I10 - Hypertension Diagnosis: Principal Status: Acute (4) Neuropathy ICD Code: G62.9 - Neuropathy Diagnosis: Principal Status: Chronic (5) Viral pneumonitis ICD Code: J12.9 - Viral pneumonia, unspecified Diagnosis: Principal (6) COPD with acute exacerbation ICD Code: J44.1 - Chronic obstructive pulmonary disease with (acute) exacerbation Diagnosis: Principal Status: Acute (7) Type 2 diabetes mellitus ICD Code: E11.9 - Type 2 diabetes mellitus without complications Diagnosis: Principal Status: Acute Procedures none Brief History - From Admission Mr. Mosley is a 51-year-old male. He came into our hospital overnight after having 2 days of worsening respiratory distress and dyspnea. He reports that his daughter was sick and has been an illness going around his family. 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 Lung disease is present and he has been told this could be COPD, but he has not had formal testing to differentiate if this is COPD or another pulmonary condition. Regardless of the cause is present respiratory status is exacerbated. At baseline he reports respiratory symptoms including dyspnea on exertion and poor tolerance with any form of obstruction such as a respirator mask for painting. She does not use any inhalers or chronic inhaled steroids at baseline. Echocardiograms have been performed in the past and showed no evidence of congestive heart failure. He is obese and this may be contributory. However, symptoms at reported baseline appeared to be worse than would be expected for his weight. A CT scan of the chest in 2011 showed no evidence of pulmonary fibrosis. A stress test from 2014 showed no evidence of ischemic disease and also correlated with echo from 2005 which showed no evidence of CHF. His last echo was 11 years ago, so a repeat evaluation of his ejection fraction is warranted. Other baseline health conditions are hypertension, diabetes mellitus type 2, hyperlipidemia, and obesity. She is not currently smoking. No history of childhood exposures and no history of childhood asthma. When seen today he still has wheezing and a cough is still present. He cannot recall if he has ever been evaluated by a saas architect and has never had an outpatient saas architect to follow with. Respiratory symptoms have been present for about 10 years. He has been hospitalized before for exacerbation of his respiratory status. No history of intubation per patient. Imaging Last Impressions Chest CT 01/26/171929 Signed Impressions: Service Date/Time: , January 26, 2017 20:54 - CONCLUSION: 1. Benign-appearing pleural thickening with subjacent stranding laterally in the right midchest is nonspecific and may represent a mild pneumonitis. No confluent infiltrate. 2. Prominent pretracheal lymph nodes in the mediastinum all contain fatty acra and are likely reactive. Zev Ceballos MD Chest X-Ray 01/26/173 Signed Impressions: Service Date/Time: , January 26, 2017 04:42 - CONCLUSION: 1. No acute cardiopulmonary disease. Imtiaz Red MD PE at Discharge GENERAL: This is a well-nourished, well-developed patient, in no apparent distress. CARDIOVASCULAR: Normal rate and regular rhythm without murmurs, gallops, or rubs. RESPIRATORY: Good respiratory efforts. Coughing spells. Diffuse expiratory wheezing. GASTROINTESTINAL: Abdomen soft, non-tender, non-distended. Normal active bowel sounds MUSCULOSKELETAL: Extremities without cyanosis, or edema. NEURO: Alert & Oriented x4 to person, place, time, situation. Moves all ext x4 PSYCH: Appropriate mood and affect. Pt update on day of discharge sob much improved. Denies cp. Hospital Course 51-year-old male admitted secondary to respiratory distress and acute dyspnea. Pneumonitis on CT. Echocardiogram shows ejection fraction of 60-65%. -Acute dyspnea secondary to bilateral pneumonitis, possible COPD exacerbation Treated with IV steroids transitioned to oral prior to DC. CT of chest showed no pulmonary fibrosis. Pneumonitis is present. Greated with Iv steroids transitioned to prednisone. Patient also treated with IV antibiotics which were completed. Treated with Duonebs. Incentive spirometry. Failed O2 walk test initially. The patient improved and eventually passed the walk test. Pedal edema, chronic likely dependent compounded by obesity Echo showed ejection fraction of 60-65% Diabetes mellitus type 2 Follow blood sugars Insulin sliding scale Diabetic diet Hyperlipidemia Obesity No change to baseline treatment Dietary changes recommended (increased fiber) Follow as an outpatient Hypertension BP had periods of being slightly elevated. Patient continued on lisinopril which eventually was able to eb controlled BP and vital signs monitored. DVT prophylaxis Lovenox Pt Condition on Discharge: Stable Discharge Disposition: Discharge Home Discharge Time: > 30 minutes Discharge Instructions DIET: Follow Instructions for: Diabetic Diet Activities you can perform: Regular-No Restrictions Activities to Avoid: Strenuous Activity Follow up Referrals: PCP Follow-up - 2 Weeks Pulmonology - 1 Week needs sleep study New Medications: Blood Glucose Monitoring W/Device (Glucocom Blood Glucose Mo W/Device) 1 Kit Kit KIT .ROUTE DIRECTED for Blood Sugar Management, #1 Glucocom Test Strips (Glucocom Test Strips) 1 Lilian Lilian EA .ROUTE DIRECTED for Blood Sugar Management, #1 Insulin Aspart Inj (Novolog Inj) 1,000 Unit/10 Ml Vial 2-12 UNITS SQ ACHS for Blood Sugar Management, #10 ML 0 Refills Max dose at bedtime ( ) units; sugars less than 70,(0) units; sugars 150-199,(2) units; sugars 200-249,(4) units; sugars 250-299,(7) units; sugars 300-349,(10) units; sugars greater than 349,(12)units Insulin Syringe/U-100/31G X 5/16" 1 ml (Insulin Syringe/U-100/31G X 5/16" 1 ml) 31 Gauge X 5/16" Mis EA .ROUTE DIRECTED for Blood Sugar Management, #1 0 Refills Lancets (Lancets) 1 Mis Mis EA .ROUTE DIRECTED for Blood Sugar Management, #1 0 Refills Prednisone (Prednisone) 20 Mg Tab 40 MG PO DAILY for Shortness of Breath, #10 TAB 0 Refills Take 40 mg (2 tablets) daily for 5 days Budesonide-Formoterol Inh (Symbicort Inh) 160-4.5 Mcg/Act Aero 2 PUFF INH Q12HR for Shortness of Breath, #1 INHALER 3 Refills Cefuroxime (Cefuroxime) 500 Mg Tab 500 MG PO Q12HR for Shortness of Breath, #14 TAB [guaiFEN-COD 200-20 MG/10ML LIQ] () 10 ML SYRP 10 ML PO Q4H PRN for Cough, #1 BOTTLE Continued Medications: Ibuprofen (Ibuprofen) 600 Mg Tab 600 MG PO Q6H PRN for Pain/Inflammation, #40 TAB Lisinopril (Lisinopril) 20 Mg Tab 20 MG PO DAILY, #30 TAB 0 Refills Jose Maddox MD Feb 01, 2017 13:33
--- NOTE | 2017-02-13 10:18 | RSPPFT ---
DATE OF PROCEDURE: 01/27/17 COMMENTS: Spirometry demonstrates an FEV1 of 1.1 at 29% of predicted, FVC of 1.9 at 39% FEF 25-75 is 15% of predicted. Post-bronchodilator study demonstrated improvements in the FEF 25-75. Lung volumes were not completed. Flow volume loops suggest an obstructive pattern. IMPRESSION: 1. Moderately severe obstructive disease. 2. Minimal response to use of bronchodilator indicating some reversibility.
== END 2017-02-01 16:16 | disposition home or self-care (01) ==
LOC: PHED 04:07 → PHEDA 06:36 → PH3B 07:57
PROVIDERS: ADMIT Hospitalist; ATTEND Hospitalist
DX: J44.1 Chronic obstructive pulmonary disease with (acute) exacerbation (principal); I10 Essential (primary) hypertension; J12.9 Viral pneumonia, unspecified; G62.9 Polyneuropathy, unspecified; E11.9 Type 2 diabetes mellitus without complications; E11.65 Type 2 diabetes mellitus with hyperglycemia; E66.09 Other obesity due to excess calories; E78.5 Hyperlipidemia, unspecified; G47.33 Obstructive sleep apnea (adult) (pediatric); K21.9 Gastro-esophageal reflux disease without esophagitis; Z79.51 Long term (current) use of inhaled steroids; Z87.01 Personal history of pneumonia (recurrent); Z87.891 Personal history of nicotine dependence; Z79.84 Long term (current) use of oral hypoglycemic drugs; Z79.01 Long term (current) use of anticoagulants
CPT/HCPCS: 36600; 71010; 71250; 80053; 82805; 82948; 83880; 85025; 85652; 86038; 86140; 86430; 87804; 93308; 94060; 94150; 94620; 94640; 94664; 96361; 96365; 96366; 96372; 96375; 96376; 99285; G0378; J0696; J1650; J1815; J2920; J2930; J7512; J7613